=== PATIENT | male | born 1955 | race Hispanic/Latino ===

== ENCOUNTER 2023-03-16 16:46 | Inpatient (IN) | payer MEDICARE, OTHER, SELFPAY ==
[~2023-03-16 16:46] MED LIST: Iopamidol-370 76% 500 ML MDV (1 ML CHARGE) ONE
[2023-03-16 17:44] LABS: #Eosinphils 0.1 thou/uL (0.0-0.7); #Monocytes 0.7 thou/uL (0.11-0.59); #Neutrophils 6.1 thou/uL (1.40-6.50); %Basophils 0.5 % (0.0-1.0); %Eosinophils 1.3 % (0.0-10.0); %Lymphocytes 20.6 % (21.0-51.0); %Monocytes 8.1 % (0.0-10.0); %Neutrophils 69.2 % (42.0-75.0); Hemoglobin 14.3 g/dL (14.0-18.0); Mean Corpuscular HGB CONC 34.2 g/dL (32.0-36.0); Mean Corpuscular Hemoglobin 28.7 pg (27.0-31.0); Mean Corpuscular Volume 83.9 fl (78.0-98.0); Mean Platelet Volume 10.9 fL (7.4-10.4); Platelet Count 227 10x3/uL (130-400); RBC Distribution Width 13.9 % (11.5-14.5); Red Blood Cell (RBC) Count 4.98 mill/uL (4.70-6.10); White Blood Cell (WBC) Count 8.8 10x3/uL (4.8-10.8)
[2023-03-16 18:12] LABS: ALT (SGPT) 14 U/L (8-55); AST (SGOT) 15 U/L (5-34); Albumin 4.3 g/dL (3.4-4.8); Alkaline Phosphatase 73 U/L (40-110); Anion Gap 14 mmol/L (10-20); BUN (Urea Nitrogen) 12 mg/dL (8.4-25.7); Bilirubin, Total 0.4 mg/dL (0.2-1.2); CK (CPK) 164 U/L (30-200); Calc. Creatinine Clearance 0 mL/min (70-130); Calcium 9.1 mg/dL (7.8-10.44); Carbon Dioxide 25 mmol/L (23-31); Chloride 103 mmol/L (98-107); Estimated GFR 79; Glucose 106 mg/dL (80-115); Lipase 76 U/L (8-78); Potassium 3.7 mmol/L (3.5-5.1); Protein, Total 7.3 g/dL (5.8-8.1); Sodium 138 mmol/L (136-145)
[2023-03-16] MEDS ORDERED: hydrALAZINE 20 MG/ML VIAL ONE (18:48)
[2023-03-16] MEDS ORDERED: Acetaminophen 325 MG TAB PO PRN (19:45)
[2023-03-16] MEDS ORDERED: hydrALAZINE 20 MG/ML VIAL SLOW IVP PRN (19:45)
[2023-03-16] MEDS ORDERED: Acetaminophen 650 MG Suppository PR PRN (19:45)
[2023-03-16] MEDS ORDERED: Ondansetron PF 4 MG/2 ML Vial IVP PRN (19:45)
[2023-03-16] MEDS ORDERED: Ondansetron ODT 4 MG TAB PO PRN (19:45)
[2023-03-16] MEDS ORDERED: Aspirin 81 mg Enteric Coated Tablet PO SCH (20:00)
[2023-03-16] MEDS ORDERED: Aspirin Chewable 81 MG TAB PO SCH (20:00)
[2023-03-16] MEDS ORDERED: Aspirin Chewable 81 MG TAB ONE (20:28)
[2023-03-16] MEDS: Atorvastatin Calcium 40 MG TAB PO SCH (20:31)
[2023-03-17 04:19] LABS: #Eosinphils 0.2 thou/uL (0.0-0.7); #Monocytes 0.8 thou/uL (0.11-0.59); %Basophils 0.4 % (0.0-1.0); %Eosinophils 1.6 % (0.0-10.0); %Lymphocytes 23.5 % (21.0-51.0); %Monocytes 8.8 % (0.0-10.0); %Neutrophils 65.5 % (42.0-75.0); Mean Corpuscular HGB CONC 34.5 g/dL (32.0-36.0); Mean Corpuscular Hemoglobin 29.4 pg (27.0-31.0); Mean Corpuscular Volume 85.1 fl (78.0-98.0); Platelet Count 231 10x3/uL (130-400); Red Blood Cell (RBC) Count 4.77 mill/uL (4.70-6.10); White Blood Cell (WBC) Count 9.1 10x3/uL (4.8-10.8)
[2023-03-17 04:29] LABS: Hemoglobin A1c 6.1 % (4.0-6.0)
[2023-03-17 04:45] LABS: Anion Gap 14 mmol/L (10-20); BUN (Urea Nitrogen) 10 mg/dL (8.4-25.7); Calc. Creatinine Clearance 0 mL/min (70-130); Calcium 8.9 mg/dL (7.8-10.44); Carbon Dioxide 24 mmol/L (23-31); Cardiac Risk 2.6 (Less than 4.5); Chloride 103 mmol/L (98-107); Cholesterol 108 mg/dl (< 200 Desired); Estimated GFR 89; Glucose 106 mg/dL (80-115); HDL Cholesterol 41 mg/dL (>60 Neg Risk); LDL Cholesterol, Calculated 55 mg/dL; Potassium 3.6 mmol/L (3.5-5.1); Sodium 137 mmol/L (136-145); Triglycerides 62 mg/dL (Less than 150)
[2023-03-17] MEDS ORDERED: Aspirin Chewable 81 MG TAB ONE (08:47)
[2023-03-17] MEDS: Aspirin 81 mg Enteric Coated Tablet PO SCH (08:52)
[2023-03-17] MEDS ORDERED: niCARdipine 25 MG/10 ML SDV ONE (10:39)
[2023-03-17] MEDS ORDERED: niCARdipine 25 MG in Sodium Chloride 0.9% 250 ML 250 ML IVPB SCH (10:45)
[2023-03-17] MEDS ORDERED: Famotidine 20 MG TAB PO SCH ×2 (21:00→21:45)
[2023-03-17] MEDS: Atorvastatin Calcium 40 MG TAB PO SCH (21:42)
[2023-03-17] MEDS ORDERED: Atorvastatin Calcium 40 MG TAB PO SCH (21:45)
[2023-03-18 05:56] VITALS: BMI 29.8
[2023-03-18] MEDS: Famotidine 20 MG TAB PO SCH ×2 (08:12→20:14)
[2023-03-18] MEDS: Aspirin 81 mg Enteric Coated Tablet PO SCH (08:12)
[2023-03-18] MEDS: Losartan 25 MG TAB PO SCH (09:32)
[2023-03-18] MEDS: Metoprolol Tartrate 50 MG TAB PO SCH ×2 (09:33→20:13)
[2023-03-18] MEDS: Atorvastatin Calcium 40 MG TAB PO SCH (20:13)
[2023-03-19] MEDS: Losartan 25 MG TAB PO SCH (07:59)
[2023-03-19] MEDS: Famotidine 20 MG TAB PO SCH (08:00)
[2023-03-19] MEDS: Aspirin 81 mg Enteric Coated Tablet PO SCH (08:00)
[2023-03-19] MEDS: Metoprolol Tartrate 50 MG TAB PO SCH ×2 (08:00→20:28)
[2023-03-19] MEDS ORDERED: Losartan 25 MG TAB PO SCH (13:15)
[2023-03-19 14:03] VITALS: BP 200/86
[2023-03-19] MEDS: Atorvastatin Calcium 40 MG TAB PO SCH (20:28)
[2023-03-20] MEDS ORDERED: Losartan 25 MG TAB PO SCH (09:00)
[2023-03-20] MEDS ORDERED: Sterile Water 10 ML ONE (09:21)
[2023-03-20] MEDS: Metoprolol Tartrate 50 MG TAB PO SCH (13:24)
[2023-03-20] MEDS: Aspirin 81 mg Enteric Coated Tablet PO SCH (13:24)
[2023-03-20] MEDS ORDERED: Clopidogrel Bisulfate 75 MG TAB PO SCH (13:30)
[2023-03-20 13:39] VITALS: TEMP 98.4
== END 2023-03-20 16:30 | disposition home or self-care (01) | DRG 65 ==
LOC: ERS 16:46 → ERHOLD 19:09 → 2SE 03-17 16:21 → CCU 03-17 20:34
PROVIDERS: ADMIT Internal Medicine; ATTEND Family Medicine
PROC: B24BZZ4 Ultrasonography of Heart with Aorta, Transesophageal (ICD-10-PCS; principal; 2023-03-20)
DX: I63.89 Other cerebral infarction (principal); I16.1 Hypertensive emergency; E78.5 Hyperlipidemia, unspecified; I65.21 Occlusion and stenosis of right carotid artery; G83.21 Monoplegia of upper limb affecting right dominant side; R47.1 Dysarthria and anarthria; I10 Essential (primary) hypertension; Z87.891 Personal history of nicotine dependence; R00.1 Bradycardia, unspecified; F12.10 Cannabis abuse, uncomplicated
CPT/HCPCS: 36415; 70450; 70496; 70498; 70551; 71045; 80048; 80053; 80061; 82550; 83036; 83690; 84443; 84478; 84484; 85025; 93005; 93306; 93312; 96374; J0360; J1650; J7050; Q9967

== ENCOUNTER 2023-03-27 18:38 | Observation (INO) | payer MEDICARE ==
[2023-03-27 18:58] LABS: #Basophils 0.1 thou/uL (0.0-0.2); #Eosinphils 0.3 thou/uL (0.0-0.7); #Monocytes 1.1 thou/uL (0.11-0.59); #Neutrophils 5.7 thou/uL (1.40-6.50); %Basophils 0.6 % (0.0-1.0); %Eosinophils 2.2 % (0.0-10.0); %Lymphocytes 37.1 % (21.0-51.0); %Monocytes 9.9 % (0.0-10.0); %Neutrophils 49.9 % (42.0-75.0); Hemoglobin 15.1 g/dL (14.0-18.0); Mean Corpuscular HGB CONC 32.5 g/dL (32.0-36.0); Mean Corpuscular Volume 89.3 fl (78.0-98.0); Mean Platelet Volume 11.1 fL (7.4-10.4); Platelet Count 287 10x3/uL (130-400); RBC Distribution Width 13.7 % (11.5-14.5); Red Blood Cell (RBC) Count 5.21 mill/uL (4.70-6.10); White Blood Cell (WBC) Count 11.5 10x3/uL (4.8-10.8)
[2023-03-27 19:08] LABS: PTT 24.9 sec (22.9-36.1); Prothrombin Time 13.7 sec (12.0-14.7)
[2023-03-27 19:21] LABS: Calcium 9.3 mg/dL (7.8-10.44)
[2023-03-27 19:26] LABS: ALT (SGPT) 24 U/L (8-55); AST (SGOT) 18 U/L (5-34); Albumin 4.4 g/dL (3.4-4.8); Alkaline Phosphatase 83 U/L (40-110); Anion Gap 29 mmol/L (10-20); BUN (Urea Nitrogen) 30 mg/dL (8.4-25.7); Bilirubin, Total 0.2 mg/dL (0.2-1.2); CK (CPK) 75 U/L (30-200); Calc. Creatinine Clearance 0 mL/min (70-130); Carbon Dioxide 12 mmol/L (23-31); Chloride 103 mmol/L (98-107); Estimated GFR 39; Globulin 3.5 g/dL (2.4-3.5); Glucose 138 mg/dL (80-115); Potassium 4.2 mmol/L (3.5-5.1); Protein, Total 7.9 g/dL (5.8-8.1); Sodium 140 mmol/L (136-145)
[2023-03-27 19:36] LABS: Acetaminophen Less than 10 mcg/mL (10.0-30.0); Alcohol Less than 10.0 mg/dL (Less than 10); Magnesium 2.5 mg/dL (1.6-2.6); Salicylate Less than 8.0 mg/dL (15.0-30.0)
[2023-03-27] MEDS ORDERED: levETIRAcetam 500 MG/5 ML VIAL ONE ×2 (20:11→20:12)
[2023-03-27 20:57] LABS: Bilirubin Negative (Negative); Blood, Urine 1+ (Negative); CAUTI Indications for Culture Alt mental st,lethar; Clarity Turbid (Clear); Glucose, Urine (Dipstick) Normal (Negative); Ketone, Urine Negative (Negative); Leukocyte Negative Leu/uL (Negative); Mucous/LPF Rare LPF (<2+); Nitrite Negative (Negative); Protein, Urine (Dipstick) 50 mg/dL (Neg-Trace); RBC/HPF 0-3 HPF (0-3); Specific Gravity, Urine 1.025 (1.002-1.036); Squamous Epithelial 0-3 HPF (0-3); Urobilinogen Normal mg/dL (Less than 2); WBC/HPF 0-3 HPF (0-3)
[2023-03-27 21:00] LABS: Amphetamine Not Detected (NotDetected); Barbiturates Screen Not Detected (NotDetected); Benzodiazepine Screen Not Detected (NotDetected); Cocaine Metabolite Screen Not Detected (NotDetected); Methadone Not Detected (NotDetected); Methamphetamine Not Detected (NotDetected); Opiate Screen Not Detected (NotDetected); Oxycodone Screen Not Detected (NotDetected); Phencyclidine (PCP) Not Detected (NotDetected); THC/Cannabinoid Screen Detected (NotDetected); Tricyclic Screen Not Detected (NotDetected)
[2023-03-27] MEDS ORDERED: Acetaminophen 325 MG TAB PO PRN (21:05)
[2023-03-27] MEDS ORDERED: Ondansetron PF 4 MG/2 ML Vial IVP PRN (21:05)
[2023-03-27 21:10] LABS: Bacteria/HPF Rare-Few HPF (None Seen); Sperm/HPF Rare HPF (None Seen)
[2023-03-27 21:12] LABS: Urine Culture Reflex No No
[2023-03-27] MEDS ORDERED: Atorvastatin Calcium 40 MG TAB PO SCH (21:15)
[2023-03-27 21:43] LABS: Anion Gap 12 mmol/L (10-20); BUN (Urea Nitrogen) 27 mg/dL (8.4-25.7); Calc. Creatinine Clearance 0 mL/min (70-130); Calcium 8.5 mg/dL (7.8-10.44); Carbon Dioxide 25 mmol/L (23-31); Chloride 104 mmol/L (98-107); Estimated GFR 51; Glucose 119 mg/dL (80-115); Sodium 137 mmol/L (136-145)
[2023-03-27] MEDS ORDERED: Lorazepam 2 MG/ML VIAL SLOW IVP PRN (21:43)
[2023-03-27] MEDS ORDERED: Sodium Bicarb 50 MEQ/50 ML VIAL ONE (22:36)
[2023-03-28] MEDS: Sodium Chloride 0.9% 1,000 ML IV SCH ×2 (03:28→14:59)
[2023-03-28 05:21] LABS: #Basophils 0.1 thou/uL (0.0-0.2); #Eosinphils 0.1 thou/uL (0.0-0.7); #Neutrophils 5.9 thou/uL (1.40-6.50); %Basophils 0.6 % (0.0-1.0); %Eosinophils 1.4 % (0.0-10.0); %Lymphocytes 20.7 % (21.0-51.0); %Monocytes 11.5 % (0.0-10.0); %Neutrophils 65.5 % (42.0-75.0); Mean Corpuscular HGB CONC 33.6 g/dL (32.0-36.0); Mean Corpuscular Hemoglobin 28.5 pg (27.0-31.0); Mean Platelet Volume 11.4 fL (7.4-10.4); Platelet Count 240 10x3/uL (130-400); RBC Distribution Width 13.9 % (11.5-14.5); Red Blood Cell (RBC) Count 4.24 mill/uL (4.70-6.10)
[2023-03-28 05:27] LABS: Hemoglobin 12.1 g/dL (14.0-18.0)
[2023-03-28 05:28] LABS: Mean Corpuscular Volume 84.9 fl (78.0-98.0)
[2023-03-28 05:49] LABS: Anion Gap 13 mmol/L (10-20); BUN (Urea Nitrogen) 23 mg/dL (8.4-25.7); Calc. Creatinine Clearance 0 mL/min (70-130); Calcium 8.4 mg/dL (7.8-10.44); Carbon Dioxide 23 mmol/L (23-31); Chloride 107 mmol/L (98-107); Estimated GFR 62; Glucose 109 mg/dL (80-115); Potassium 3.8 mmol/L (3.5-5.1); Sodium 139 mmol/L (136-145)
[2023-03-28 05:53] VITALS: BMI 26.8
[2023-03-28] MEDS ORDERED: Aspirin 81 mg Enteric Coated Tablet PO SCH (09:00)
[2023-03-28] MEDS ORDERED: Clopidogrel Bisulfate 75 MG TAB PO SCH (09:00)
[2023-03-28] MEDS ORDERED: Metoprolol Tartrate 50 MG TAB PO SCH (09:00)
[2023-03-28] MEDS ORDERED: levETIRAcetam 500 MG TAB PO SCH (09:00)
[2023-03-28 12:36] VITALS: BP 119/65; TEMP 97.5
[2023-03-28] MEDS ORDERED: Atorvastatin Calcium 40 MG TAB PO SCH (21:00)
== END 2023-03-28 15:40 | disposition home or self-care (01) ==
LOC: ERS 18:38 → 2SE 21:01
PROVIDERS: ADMIT Internal Medicine; ATTEND Internal Medicine
DX: R56.9 Unspecified convulsions (principal); N17.9 Acute kidney failure, unspecified; I10 Essential (primary) hypertension; E78.5 Hyperlipidemia, unspecified; I25.10 Atherosclerotic heart disease of native coronary artery without angina pectoris; E87.20 Acidosis, unspecified; F12.10 Cannabis abuse, uncomplicated; Z86.73 Personal history of transient ischemic attack (TIA), and cerebral infarction without residual deficits; Z79.82 Long term (current) use of aspirin; Z79.02 Long term (current) use of antithrombotics/antiplatelets; Z79.899 Other long term (current) drug therapy; Z87.891 Personal history of nicotine dependence
CPT/HCPCS: 70450; 80048 ×2; 80053; 80306; 80307; 81001; 82550; 82962; 83605; 83735; 84146; 84484; 85025 ×2; 85610; 85730; 93005; 95712; 95819; 95957; 96365; 96375; 99285; G0378 ×2; J1953; 36415; 36416; J7050

== ENCOUNTER 2023-05-23 09:16 | Inpatient (IN) | payer MEDICARE ==
[2023-05-23 09:54] LABS: #Basophils 0.1 thou/uL (0.0-0.2); #Eosinphils 0.2 thou/uL (0.0-0.7); #Monocytes 0.6 thou/uL (0.11-0.59); #Neutrophils 7.3 thou/uL (1.40-6.50); %Basophils 0.6 % (0.0-1.0); %Eosinophils 1.8 % (0.0-10.0); %Monocytes 6.7 % (0.0-10.0); %Neutrophils 77.6 % (42.0-75.0); Hemoglobin 11.7 g/dL (14.0-18.0); Mean Corpuscular HGB CONC 33.4 g/dL (32.0-36.0); Mean Corpuscular Volume 86.6 fl (78.0-98.0); Mean Platelet Volume 10.3 fL (7.4-10.4); Platelet Count 279 10x3/uL (130-400); RBC Distribution Width 13.6 % (11.5-14.5); Red Blood Cell (RBC) Count 4.04 mill/uL (4.70-6.10); White Blood Cell (WBC) Count 9.4 10x3/uL (4.8-10.8)
[2023-05-23 10:04] LABS: INR-International Normal Ratio 1.1; PTT 28.7 sec (22.9-36.1); Prothrombin Time 14.5 sec (12.0-14.7)
[2023-05-23] MEDS ORDERED: Tenecteplase 50 MG ONE (10:10)
[2023-05-23 10:17] LABS: ALT (SGPT) 36 U/L (8-55); AST (SGOT) 16 U/L (5-34); Albumin 3.4 g/dL (3.4-4.8); Alkaline Phosphatase 77 U/L (40-110); Anion Gap 11 mmol/L (10-20); BUN (Urea Nitrogen) 14 mg/dL (8.4-25.7); Bilirubin, Total 0.3 mg/dL (0.2-1.2); Calc. Creatinine Clearance 0 mL/min (70-130); Calcium 8.9 mg/dL (7.8-10.44); Carbon Dioxide 26 mmol/L (23-31); Chloride 101 mmol/L (98-107); Estimated GFR 74; Globulin 2.9 g/dL (2.4-3.5); Glucose 121 mg/dL (80-115); Protein, Total 6.3 g/dL (5.8-8.1); Sodium 134 mmol/L (136-145)
[2023-05-23 10:19] LABS: Troponin I Less than 0.010 ng/mL (< 0.028)
[2023-05-23] MEDS ORDERED: Labetalol HCl 100 MG/20 ML VIAL ONE ×2 (10:26)
[2023-05-23] MEDS ORDERED: levETIRAcetam 500 MG/5 ML VIAL ONE (10:38)
[2023-05-23] MEDS ORDERED: Iopamidol-370 76% 500 ML MDV (1 ML CHARGE) ONE (10:54)
[2023-05-23] MEDS ORDERED: hydrALAZINE 20 MG/ML VIAL SLOW IVP PRN ×2 (11:10)
[2023-05-23] MEDS ORDERED: niCARdipine 25 MG in Sodium Chloride 0.9% 250 ML 250 ML IVPB PRN (11:10)
[2023-05-23] MEDS ORDERED: Communication Order-Pharmacy FS SCH (11:10)
[2023-05-23 12:38] VITALS: BMI 27.9
[2023-05-23] MEDS: Labetalol HCl 100 MG/20 ML VIAL SLOW IVP PRN ×2 (14:12→17:02)
[2023-05-23] MEDS ORDERED: Sodium Chloride 0.9% 1,000 ML IV SCH (16:15)
[2023-05-23] MEDS: levETIRAcetam 500 MG TAB PO SCH (20:38)
[2023-05-23] MEDS: Atorvastatin Calcium 40 MG TAB PO SCH (20:38)
[2023-05-24] MEDS: levETIRAcetam 500 MG TAB PO SCH ×2 (08:34→20:07)
[2023-05-24 12:05] LABS: Cardiac Risk 2.5 (Less than 4.5)
[2023-05-24 12:16] LABS: Troponin I Less than 0.010 ng/mL (< 0.028)
[2023-05-24 13:45] LABS: Syphilis Antibody Nonreactive (Nonreactive); Syphilis Antibody Index 0.09 S/CO (<1.00 Non-Reactive)
[2023-05-24 14:57] LABS: Troponin I Less than 0.010 ng/mL (< 0.028)
[2023-05-24] MEDS ORDERED: Acetaminophen 325 MG TAB PO PRN (20:01)
[2023-05-24] MEDS: Atorvastatin Calcium 40 MG TAB PO SCH (20:07)
[2023-05-25] MEDS: levETIRAcetam 500 MG TAB PO SCH (08:36)
[2023-05-25] MEDS ORDERED: Lorazepam 2 MG/ML VIAL SLOW IVP SCH (09:00)
[2023-05-25] MEDS ORDERED: levETIRAcetam 500 MG/5 ML VIAL SLOW IVP SCH (09:00)
[2023-05-25] MEDS ORDERED: Aspirin 81 mg Enteric Coated Tablet PO SCH (14:00)
[2023-05-25] MEDS: Atorvastatin Calcium 40 MG TAB PO SCH (20:51)
[2023-05-25] MEDS: levETIRAcetam 500 MG/5 ML VIAL SLOW IVP SCH (21:00)
[2023-05-26] MEDS: levETIRAcetam 500 MG/5 ML VIAL SLOW IVP SCH ×2 (08:03→21:55)
[2023-05-26] MEDS ORDERED: Aspirin 81 mg Enteric Coated Tablet PO SCH (09:00)
[2023-05-26 10:30] LABS: #Basophils 0.1 thou/uL (0.0-0.2); #Eosinphils 0.5 thou/uL (0.0-0.7); #Monocytes 0.8 thou/uL (0.11-0.59); #Neutrophils 5.8 thou/uL (1.40-6.50); %Basophils 0.6 % (0.0-1.0); %Eosinophils 5.7 % (0.0-10.0); %Lymphocytes 17.1 % (21.0-51.0); %Monocytes 9.3 % (0.0-10.0); %Neutrophils 67.1 % (42.0-75.0); Hematocrit 36.3 % (42.0-52.0); Hemoglobin 12.4 g/dL (14.0-18.0); Mean Corpuscular HGB CONC 34.2 g/dL (32.0-36.0); Mean Corpuscular Hemoglobin 28.6 pg (27.0-31.0); Mean Corpuscular Volume 83.6 fl (78.0-98.0); Mean Platelet Volume 10.6 fL (7.4-10.4); Platelet Count 253 10x3/uL (130-400); RBC Distribution Width 13.7 % (11.5-14.5); Red Blood Cell (RBC) Count 4.34 mill/uL (4.70-6.10); White Blood Cell (WBC) Count 8.6 10x3/uL (4.8-10.8)
[2023-05-26 10:52] LABS: Phosphorus 3.5 mg/dL (2.3-4.7)
[2023-05-26 10:56] LABS: ALT (SGPT) 21 U/L (8-55); AST (SGOT) 12 U/L (5-34); Albumin 3.6 g/dL (3.4-4.8); Alkaline Phosphatase 81 U/L (40-110); Anion Gap 11 mmol/L (10-20); BUN (Urea Nitrogen) 16 mg/dL (8.4-25.7); Bilirubin, Total 0.4 mg/dL (0.2-1.2); Calc. Creatinine Clearance 80 mL/min (70-130); Carbon Dioxide 29 mmol/L (23-31); Chloride 100 mmol/L (98-107); Estimated GFR 82; Globulin 3.1 g/dL (2.4-3.5); Glucose 119 mg/dL (80-115); Potassium 3.8 mmol/L (3.5-5.1); Protein, Total 6.7 g/dL (5.8-8.1); Sodium 136 mmol/L (136-145)
[2023-05-26 11:00] LABS: Anion Gap 10 mmol/L (10-20); BUN (Urea Nitrogen) 16 mg/dL (8.4-25.7); Calc. Creatinine Clearance 82 mL/min (70-130); Carbon Dioxide 29 mmol/L (23-31); Chloride 101 mmol/L (98-107); Estimated GFR 86; Glucose 119 mg/dL (80-115); Potassium 3.8 mmol/L (3.5-5.1); Sodium 136 mmol/L (136-145)
[2023-05-26] MEDS ORDERED: Lacosamide 200 MG in Sodium Chloride 0.9% 50 ML IVPB SCH ×2 (11:15→21:00)
[2023-05-26 13:00] LABS: ANA Symphony (Qualitative) Equivocal: See Note (Negative); ANA Symphony (Quantitative) 0.8 Ratio (< 0.7 Negative); CCP IgG Antibody 1.4 EliAU/mL (<7 Negative); Rheumatoid Factor IgA Antibody 3.3 IU/mL (<14 Negative)
[2023-05-26 15:12] VITALS: BP 137/86
[2023-05-26] MEDS: Atorvastatin Calcium 40 MG TAB PO SCH (21:55)
[2023-05-27 01:49] VITALS: TEMP 98.4
[2023-05-27 05:02] LABS: Magnesium 1.8 mg/dL (1.6-2.6)
== END 2023-05-27 09:20 | disposition critical access hospital (66) | DRG 62 ==
LOC: ERS 09:16 → CCU 09:40
PROVIDERS: ADMIT Hospitalist; ATTEND Internal Medicine
PROC: 3E03317 Introduction of Other Thrombolytic into Peripheral Vein, Percutaneous Approach (ICD-10-PCS; principal; 2023-05-23)
PROC: 4A10X4Z Monitoring of Central Nervous Electrical Activity, External Approach (ICD-10-PCS; 2023-05-25)
PROC: 4A10X4Z Monitoring of Central Nervous Electrical Activity, External Approach (ICD-10-PCS; 2023-05-26)
DX: I63.9 Cerebral infarction, unspecified (principal); E87.1 Hypo-osmolality and hyponatremia; G81.91 Hemiplegia, unspecified affecting right dominant side; I16.1 Hypertensive emergency; R47.01 Aphasia; E78.2 Mixed hyperlipidemia; F12.10 Cannabis abuse, uncomplicated; G40.909 Epilepsy, unspecified, not intractable, without status epilepticus; I10 Essential (primary) hypertension; Z86.73 Personal history of transient ischemic attack (TIA), and cerebral infarction without residual deficits; Z87.891 Personal history of nicotine dependence; Z79.82 Long term (current) use of aspirin; Z79.899 Other long term (current) drug therapy
CPT/HCPCS: 36415; 36416; 70450; 70496; 70498; 70551; 71045; 80048; 80053; 80061; 83520; 83735; 84100; 84484; 85025; 85610; 85652; 85730; 86038; 86200; 86225; 86780; 93005; 93306; 94760; 95711; 95819; 95957; 96365; 96375; 99292; C9254; J0360; J1650; J1953; J2060; J3101; J7050; Q9967

== ENCOUNTER 2023-07-17 14:50 | Emergency (ER) | payer MEDICARE ==
[2023-07-17] MEDS ORDERED: levETIRAcetam 500 MG/5 ML VIAL ONE ×2 (15:20→17:49)
[2023-07-17 15:30] LABS: #Monocytes 0.7 thou/uL (0.11-0.59); #Neutrophils 15.4 thou/uL (1.40-6.50); %Basophils 0.2 % (0.0-1.0); %Eosinophils 0.1 % (0.0-10.0); %Lymphocytes 2.6 % (21.0-51.0); %Monocytes 4.3 % (0.0-10.0); %Neutrophils 92.3 % (42.0-75.0); Hematocrit 39.9 % (42.0-52.0); Hemoglobin 13.2 g/dL (14.0-18.0); Mean Corpuscular HGB CONC 33.1 g/dL (32.0-36.0); Mean Corpuscular Hemoglobin 28.9 pg (27.0-31.0); Mean Corpuscular Volume 87.5 fl (78.0-98.0); Mean Platelet Volume 11.1 fL (7.4-10.4); Platelet Count 215 10x3/uL (130-400); RBC Distribution Width 13.8 % (11.5-14.5); Red Blood Cell (RBC) Count 4.56 mill/uL (4.70-6.10); White Blood Cell (WBC) Count 16.7 10x3/uL (4.8-10.8)
[2023-07-17 15:42] LABS: Prothrombin Time 14.6 sec (12.0-14.7)
[2023-07-17 15:43] LABS: PTT 21.7 sec (22.9-36.1)
[2023-07-17 15:44] LABS: INR-International Normal Ratio 1.1
[2023-07-17 15:54] LABS: ALT (SGPT) 28 U/L (8-55); AST (SGOT) 17 U/L (5-34); Acetaminophen Less than 10 mcg/mL (10.0-30.0); Albumin 4.3 g/dL (3.4-4.8); Alcohol Less than 10.0 mg/dL (Less than 10); Alkaline Phosphatase 87 U/L (40-110); Anion Gap 17 mmol/L (10-20); BUN (Urea Nitrogen) 19 mg/dL (8.4-25.7); Bilirubin, Total 0.2 mg/dL (0.2-1.2); CK (CPK) 172 U/L (30-200); Calc. Creatinine Clearance 0 mL/min (70-130); Carbon Dioxide 21 mmol/L (23-31); Chloride 104 mmol/L (98-107); Estimated GFR 93; Globulin 2.7 g/dL (2.4-3.5); Glucose 119 mg/dL (80-115); Lipase 41 U/L (8-78); Potassium 3.9 mmol/L (3.5-5.1); Salicylate Less than 8.0 mg/dL (15.0-30.0); Sodium 138 mmol/L (136-145)
[2023-07-17 15:56] LABS: Troponin I Less than 0.010 ng/mL (< 0.028)
[2023-07-17] MEDS ORDERED: LORazepam 2 MG/ML SYR.(CARPUJECT) ONE ×2 (16:01→17:26)
[2023-07-17 17:24] LABS: Bacteria/HPF None Seen HPF (None Seen); Bilirubin Negative (Negative); Blood, Urine 1+ (Negative); CAUTI Indications for Culture Alt mental st,lethar; Clarity Clear (Clear); Glucose, Urine (Dipstick) 70 mg/dL (Negative); Ketone, Urine Negative (Negative); Leukocyte Negative Leu/uL (Negative); Nitrite Negative (Negative); Protein, Urine (Dipstick) Negative (Neg-Trace); RBC/HPF 0-3 HPF (0-3); Specific Gravity, Urine 1.025 (1.002-1.036); Squamous Epithelial 0-3 HPF (0-3); Urobilinogen Normal mg/dL (Less than 2); WBC/HPF 0-3 HPF (0-3)
[2023-07-17 17:32] LABS: Urine Culture Reflex No No
[2023-07-17 17:33] LABS: Amphetamine Not Detected (NotDetected); Barbiturates Screen Not Detected (NotDetected); Benzodiazepine Screen Not Detected (NotDetected); Cocaine Metabolite Screen Not Detected (NotDetected); Methadone Not Detected (NotDetected); Methamphetamine Not Detected (NotDetected); Opiate Screen Not Detected (NotDetected); Oxycodone Screen Not Detected (NotDetected); Phencyclidine (PCP) Not Detected (NotDetected); THC/Cannabinoid Screen Not Detected (NotDetected); Tricyclic Screen Not Detected (NotDetected)
[2023-07-17 17:57] LABS: SARS-CoV-2 NAA Rapid Test Not Detected (NotDetected)
[2023-07-17] MEDS ORDERED: Fosphenytoin Sodium 500 mg/10 ml Vial ONE (19:49)
[2023-07-17 19:54] LABS: Lactic Acid 0.9 mmol/L (0.5-2.2)
== END 2023-07-17 22:36 | disposition short-term general hospital (02) ==
LOC: ERS 14:50
DX: G40.919 Epilepsy, unspecified, intractable, without status epilepticus (principal); E78.5 Hyperlipidemia, unspecified; I10 Essential (primary) hypertension; Z79.899 Other long term (current) drug therapy; Z79.82 Long term (current) use of aspirin; Z20.822 Contact with and (suspected) exposure to COVID-19
CPT/HCPCS: 0240U; 70450; 71045; 80306; 80307; 81001; 82140; 82550; 83605; 83690; 84146; 84484; 85610; 85730; 87040; 93005; J1953; J2060; 36415; 51701; 80053; 84443; 85025; 96365; 96366; 96375; 96376; Q2009

== ENCOUNTER 2023-08-07 07:11 | Outpatient (CLI) | payer MEDICARE | END 2023-08-07 07:12 | disposition home or self-care (01) | PROVIDERS: ATTEND Psychiatry & Neurology Neurology | DX: I63.9 Cerebral infarction, unspecified (principal) | CPT/HCPCS: 93225; 93226 ==

== ENCOUNTER 2023-08-08 12:38 | Outpatient (CLI) | payer MEDICARE | END 2023-08-08 12:39 | disposition home or self-care (01) | LOC: ULT 12:38 | PROVIDERS: ATTEND Psychiatry & Neurology Neurology | DX: I63.9 Cerebral infarction, unspecified (principal); G93.89 Other specified disorders of brain; I65.29 Occlusion and stenosis of unspecified carotid artery; I08.8 Other rheumatic multiple valve diseases | CPT/HCPCS: 70450; 93306; 93880 ==

== ENCOUNTER 2023-08-26 19:34 | Inpatient (IN) | payer MEDICARE ==
[2023-08-26 20:25] LABS: #Basophils 0.1 thou/uL (0.0-0.2); #Eosinphils 0.3 thou/uL (0.0-0.7); #Monocytes 0.8 thou/uL (0.11-0.59); #Neutrophils 8.8 thou/uL (1.40-6.50); %Basophils 0.5 % (0.0-1.0); %Eosinophils 2.5 % (0.0-10.0); %Monocytes 6.7 % (0.0-10.0); %Neutrophils 73.1 % (42.0-75.0); Mean Corpuscular HGB CONC 33.3 g/dL (32.0-36.0); Mean Corpuscular Hemoglobin 28.2 pg (27.0-31.0); Mean Corpuscular Volume 84.7 fl (78.0-98.0); Platelet Count 253 10x3/uL (130-400); RBC Distribution Width 13.8 % (11.5-14.5); Red Blood Cell (RBC) Count 4.25 mill/uL (4.70-6.10); White Blood Cell (WBC) Count 12.1 10x3/uL (4.8-10.8)
[2023-08-26 20:39] LABS: Prothrombin Time 13.7 sec (12.0-14.7)
[2023-08-26 20:40] LABS: PTT 30.2 sec (22.9-36.1)
[2023-08-26 20:48] LABS: ALT (SGPT) 11 U/L (8-55); AST (SGOT) 11 U/L (5-34); Albumin 3.7 g/dL (3.4-4.8); Alkaline Phosphatase 95 U/L (40-110); Anion Gap 13 mmol/L (10-20); BUN (Urea Nitrogen) 12 mg/dL (8.4-25.7); Bilirubin, Total 0.2 mg/dL (0.2-1.2); Calc. Creatinine Clearance 0 mL/min (70-130); Calcium 8.6 mg/dL (7.8-10.44); Carbon Dioxide 26 mmol/L (23-31); Chloride 102 mmol/L (98-107); Estimated GFR 81; Glucose 123 mg/dL (80-115); Potassium 3.9 mmol/L (3.5-5.1); Protein, Total 6.7 g/dL (5.8-8.1); Sodium 137 mmol/L (136-145)
[2023-08-26 20:51] LABS: Troponin I Less than 0.010 ng/mL (< 0.028)
[2023-08-26] MEDS ORDERED: LORazepam 2 MG/ML SYR.(CARPUJECT) ONE (23:39)
[2023-08-26] MEDS ORDERED: Ondansetron ODT 4 MG TAB SL PRN (23:45)
[2023-08-26] MEDS ORDERED: Ondansetron PF 4 MG/2 ML Vial IVP PRN (23:45)
[2023-08-26] MEDS ORDERED: Acetaminophen 325 MG TAB PO PRN (23:45)
[2023-08-26] MEDS ORDERED: levETIRAcetam 500 MG TAB ONE (23:59)
[2023-08-27] MEDS ORDERED: Ondansetron PF 4 MG/2 ML Vial IVP PRN (00:31)
[2023-08-27] MEDS ORDERED: Ondansetron ODT 4 MG TAB PO PRN (00:31)
[2023-08-27] MEDS ORDERED: Calcium Carbonate 500 MG ChewTAB PO PRN (00:31)
[2023-08-27] MEDS ORDERED: Acetaminophen 325 MG TAB PO PRN (00:31)
[2023-08-27 00:41] LABS: Troponin I Less than 0.010 ng/mL (< 0.028)
[2023-08-27 02:02] VITALS: BMI 26.5
[2023-08-27 03:40] LABS: Troponin I Less than 0.010 ng/mL (< 0.028)
[2023-08-27 03:42] LABS: Anion Gap 11 mmol/L (10-20); BUN (Urea Nitrogen) 10 mg/dL (8.4-25.7); Calc. Creatinine Clearance 90 mL/min (70-130); Calcium 8.5 mg/dL (7.8-10.44); Carbon Dioxide 26 mmol/L (23-31); Chloride 102 mmol/L (98-107); Estimated GFR 94; Glucose 113 mg/dL (80-115); Potassium 3.8 mmol/L (3.5-5.1); Sodium 135 mmol/L (136-145)
[2023-08-27] MEDS ORDERED: levETIRAcetam 500 MG TAB PO SCH (09:00)
[2023-08-27] MEDS: Famotidine 20 MG TAB PO SCH ×2 (09:37→21:06)
[2023-08-27] MEDS: Famotidine/PF 20 mg/2ml Vial SLOW IVP SCH ×2 (09:37→21:49)
[2023-08-27] MEDS: Sertraline 25 MG TAB PO SCH (09:37)
[2023-08-27] MEDS: Aspirin 81 mg Enteric Coated Tablet PO SCH (09:37)
[2023-08-27] MEDS: Clopidogrel Bisulfate 75 MG TAB PO SCH (09:37)
[2023-08-27] MEDS: Divalproex Sodium 250 MG (DR) TAB PO SCH ×2 (09:38→21:06)
[2023-08-27] MEDS: Losartan 25 MG TAB PO SCH (09:38)
[2023-08-27] MEDS: levETIRAcetam 500 MG TAB PO SCH ×2 (09:38→21:06)
[2023-08-27] MEDS ORDERED: Magnevist 469MG/ML 20 ML VIAL ONE (09:49)
[2023-08-27] MEDS ORDERED: Ampicillin 2 GM in Sodium Chloride 0.9% 100 ML IVPB SCH (16:00)
[2023-08-27] MEDS: Dexamethasone 10 MG/ML VIAL SLOW IVP SCH ×2 (16:32→22:08)
[2023-08-27] MEDS: cefTRIAXone\\ROCEPHIN 2 GM in Sodium Chloride 0.9% 100 ML IVPB SCH (16:32)
[2023-08-27] MEDS: Ampicillin 2 GM in Sodium Chloride 0.9% 100 ML IVPB SCH ×2 (17:25→21:20)
[2023-08-27] MEDS ORDERED: Vancomycin (BATCH) 1.5 GM in Premix 1 BAG IVPB SCH (18:00)
[2023-08-27] MEDS: Atorvastatin Calcium 40 MG TAB PO SCH (21:06)
[2023-08-27] MEDS: Acyclovir Sodium 660 MG in Sodium Chloride 0.9% 100 ML IVPB SCH (22:08)
[2023-08-28] MEDS: Ampicillin 2 GM in Sodium Chloride 0.9% 100 ML IVPB SCH ×4 (01:22→16:09)
[2023-08-28] MEDS: cefTRIAXone\\ROCEPHIN 2 GM in Sodium Chloride 0.9% 100 ML IVPB SCH ×2 (03:30→17:19)
[2023-08-28] MEDS: Dexamethasone 10 MG/ML VIAL SLOW IVP SCH ×4 (03:30→22:33)
[2023-08-28] MEDS: Acyclovir Sodium 660 MG in Sodium Chloride 0.9% 100 ML IVPB SCH ×3 (04:36→21:17)
[2023-08-28 06:37] LABS: #Monocytes 0.1 thou/uL (0.11-0.59); %Basophils 0.1 % (0.0-1.0); %Lymphocytes 9.2 % (21.0-51.0); %Monocytes 0.9 % (0.0-10.0); %Neutrophils 89.4 % (42.0-75.0); Hematocrit 36.8 % (42.0-52.0); Hemoglobin 12.5 g/dL (14.0-18.0); Mean Corpuscular Hemoglobin 28.3 pg (27.0-31.0); Mean Corpuscular Volume 83.4 fl (78.0-98.0); Mean Platelet Volume 11.1 fL (7.4-10.4); Platelet Count 264 10x3/uL (130-400); RBC Distribution Width 13.3 % (11.5-14.5); Red Blood Cell (RBC) Count 4.41 mill/uL (4.70-6.10); White Blood Cell (WBC) Count 7.8 10x3/uL (4.8-10.8)
[2023-08-28 06:54] LABS: Prothrombin Time 13.8 sec (12.0-14.7)
[2023-08-28 06:55] LABS: PTT 28.2 sec (22.9-36.1)
[2023-08-28 07:05] LABS: Anion Gap 14 mmol/L (10-20); BUN (Urea Nitrogen) 13 mg/dL (8.4-25.7); Calc. Creatinine Clearance 88 mL/min (70-130); Calcium 8.9 mg/dL (7.8-10.44); Carbon Dioxide 23 mmol/L (23-31); Cardiac Risk 2.2 (Less than 4.5); Chloride 103 mmol/L (98-107); Cholesterol 116 mg/dl (< 200 Desired); Estimated GFR 94; Glucose 163 mg/dL (80-115); HDL Cholesterol 53 mg/dL (>60 Neg Risk); LDL Cholesterol, Calculated 56 mg/dL; Potassium 4.2 mmol/L (3.5-5.1); Sodium 136 mmol/L (136-145); Triglycerides 34 mg/dL (Less than 150)
[2023-08-28] MEDS: levETIRAcetam 500 MG TAB PO SCH ×2 (09:22→21:17)
[2023-08-28] MEDS: Aspirin 81 mg Enteric Coated Tablet PO SCH (09:22)
[2023-08-28] MEDS: Famotidine/PF 20 mg/2ml Vial SLOW IVP SCH ×2 (09:22→21:44)
[2023-08-28] MEDS: Divalproex Sodium 250 MG (DR) TAB PO SCH ×2 (09:22→21:18)
[2023-08-28] MEDS: Sertraline 25 MG TAB PO SCH (09:22)
[2023-08-28] MEDS: Losartan 25 MG TAB PO SCH (09:22)
[2023-08-28] MEDS: Famotidine 20 MG TAB PO SCH ×2 (09:23→21:18)
[2023-08-28] MEDS: Clopidogrel Bisulfate 75 MG TAB PO SCH (09:24)
[2023-08-28 12:02] LABS: CSF Source CSF; Clarity Clear (Clear); Tube # 4
[2023-08-28 12:03] LABS: CSF, Glucose 83 mg/dl (40-70); CSF, Protein 81 mg/dL (15-40)
[2023-08-28 13:16] LABS: CSF RBC Count - Manual 23 /cu.mm (None Seen); CSF WBC/NonHematics Count-Man 50 /cu.mm (0-5)
[2023-08-28 15:17] LABS: Cell Count Non Hematic 21 %; Lymphocytes 68 %; Segmented Neutrophils 10 %
[2023-08-28] MEDS ORDERED: Vancomycin (BATCH) 1.5 GM in Premix 1 BAG IVPB SCH (18:00)
[2023-08-28 18:17] LABS: Bilirubin Negative (Negative); Blood, Urine 3+ (Negative); CAUTI Indications for Culture Dysuria,urgency,freq; Clarity Turbid (Clear); Glucose, Urine (Dipstick) Normal (Negative); Ketone, Urine Negative (Negative); Leukocyte Negative Leu/uL (Negative); Nitrite Negative (Negative); Protein, Urine (Dipstick) 20 mg/dL (Neg-Trace); RBC/HPF Greater than 50 HPF (0-3); Specific Gravity, Urine 1.014 (1.002-1.036); Squamous Epithelial None Seen HPF (0-3); Urobilinogen Normal mg/dL (Less than 2); WBC/HPF 0-3 HPF (0-3); pH, Urine 5.5 (5.0-9.0)
[2023-08-28 18:24] LABS: Bacteria/HPF 1+ HPF (None Seen)
[2023-08-28 18:26] LABS: Urine Culture Reflex No No
[2023-08-28] MEDS: Atorvastatin Calcium 40 MG TAB PO SCH (21:18)
[2023-08-29] MEDS: Acyclovir Sodium 660 MG in Sodium Chloride 0.9% 100 ML IVPB SCH ×3 (04:33→21:12)
[2023-08-29] MEDS: Dexamethasone 10 MG/ML VIAL SLOW IVP SCH ×4 (04:33→22:34)
[2023-08-29] MEDS: levETIRAcetam 500 MG TAB PO SCH ×2 (09:39→21:13)
[2023-08-29] MEDS: Clopidogrel Bisulfate 75 MG TAB PO SCH (09:40)
[2023-08-29] MEDS: Divalproex Sodium 250 MG (DR) TAB PO SCH ×2 (09:40→21:13)
[2023-08-29] MEDS: Famotidine 20 MG TAB PO SCH ×2 (09:40→21:13)
[2023-08-29] MEDS: Aspirin 81 mg Enteric Coated Tablet PO SCH (09:40)
[2023-08-29] MEDS: Sertraline 25 MG TAB PO SCH (09:40)
[2023-08-29] MEDS: Losartan 25 MG TAB PO SCH (09:40)
[2023-08-29] MEDS: Famotidine/PF 20 mg/2ml Vial SLOW IVP SCH ×2 (09:41→21:14)
[2023-08-29] MEDS: Atorvastatin Calcium 40 MG TAB PO SCH (21:13)
[2023-08-30] MEDS: Acyclovir Sodium 660 MG in Sodium Chloride 0.9% 100 ML IVPB SCH ×2 (04:12→12:25)
[2023-08-30] MEDS: Dexamethasone 10 MG/ML VIAL SLOW IVP SCH ×4 (04:13→21:27)
[2023-08-30] MEDS: Famotidine/PF 20 mg/2ml Vial SLOW IVP SCH ×2 (08:33→21:27)
[2023-08-30] MEDS: levETIRAcetam 500 MG TAB PO SCH ×2 (08:33→21:26)
[2023-08-30] MEDS: Losartan 25 MG TAB PO SCH (08:33)
[2023-08-30] MEDS: Divalproex Sodium 250 MG (DR) TAB PO SCH ×2 (08:33→21:26)
[2023-08-30] MEDS: Aspirin 81 mg Enteric Coated Tablet PO SCH (08:33)
[2023-08-30] MEDS: Clopidogrel Bisulfate 75 MG TAB PO SCH (08:34)
[2023-08-30] MEDS: Famotidine 20 MG TAB PO SCH ×2 (08:34→21:26)
[2023-08-30] MEDS: Sertraline 25 MG TAB PO SCH (08:34)
[2023-08-30] MEDS ORDERED: chlorproMAZINE HCl 50 MG/2 ML AMP SLOW IVP SCH (13:00)
[2023-08-30] MEDS: Atorvastatin Calcium 40 MG TAB PO SCH (21:25)
[2023-08-31] MEDS: Dexamethasone 10 MG/ML VIAL SLOW IVP SCH (05:13)
[2023-08-31] MEDS: Sertraline 25 MG TAB PO SCH (08:34)
[2023-08-31] MEDS: levETIRAcetam 500 MG TAB PO SCH ×2 (08:34→20:56)
[2023-08-31] MEDS: Clopidogrel Bisulfate 75 MG TAB PO SCH (08:34)
[2023-08-31] MEDS: Losartan 25 MG TAB PO SCH (08:34)
[2023-08-31] MEDS: Aspirin 81 mg Enteric Coated Tablet PO SCH (08:34)
[2023-08-31] MEDS: Divalproex Sodium 250 MG (DR) TAB PO SCH ×2 (08:35→20:56)
[2023-08-31] MEDS: Famotidine 20 MG TAB PO SCH ×2 (08:35→20:56)
[2023-08-31] MEDS: Famotidine/PF 20 mg/2ml Vial SLOW IVP SCH (09:10)
[2023-08-31] MEDS ORDERED: Baclofen 10 MG TAB PO SCH (18:30)
[2023-08-31] MEDS: Atorvastatin Calcium 40 MG TAB PO SCH (20:56)
[2023-09-01] MEDS ORDERED: Dexamethasone 4 MG TAB PO SCH (08:00)
[2023-09-01] MEDS: Divalproex Sodium 250 MG (DR) TAB PO SCH ×2 (08:36→19:20)
[2023-09-01] MEDS: Clopidogrel Bisulfate 75 MG TAB PO SCH (08:36)
[2023-09-01] MEDS: Losartan 25 MG TAB PO SCH (08:36)
[2023-09-01] MEDS: levETIRAcetam 500 MG TAB PO SCH ×2 (08:36→19:20)
[2023-09-01] MEDS: Famotidine 20 MG TAB PO SCH ×2 (08:37→19:19)
[2023-09-01] MEDS: Sertraline 25 MG TAB PO SCH (08:37)
[2023-09-01] MEDS: Aspirin 81 mg Enteric Coated Tablet PO SCH (08:37)
[2023-09-01] MEDS ORDERED: Amlodipine 5 MG TAB PO SCH (09:00)
[2023-09-01] MEDS ORDERED: Dexamethasone 10 MG/ML VIAL SLOW IVP SCH (09:00)
[2023-09-01] MEDS ORDERED: OXcarbazepine 300 MG TAB PO SCH (09:00)
[2023-09-01] MEDS ORDERED: Baclofen 10 MG TAB PO SCH (09:00)
[2023-09-01 16:25] VITALS: TEMP 97.7
[2023-09-01] MEDS: Atorvastatin Calcium 40 MG TAB PO SCH (19:19)
[2023-09-01 20:11] VITALS: BP 115/56
== END 2023-09-01 20:15 | DRG 98 ==
LOC: ERS 19:34 → 2SE 23:52
PROVIDERS: ADMIT Student in an Organized Health Care Education/Training Program; ATTEND Family Medicine
PROC: 009U3ZX Drainage of Spinal Canal, Percutaneous Approach, Diagnostic (ICD-10-PCS; principal; 2023-08-28)
PROC: B01B1ZZ Fluoroscopy of Spinal Cord using Low Osmolar Contrast (ICD-10-PCS; 2023-08-28)
DX: G03.0 Nonpyogenic meningitis (principal); I50.32 Chronic diastolic (congestive) heart failure; I69.351 Hemiplegia and hemiparesis following cerebral infarction affecting right dominant side; G40.909 Epilepsy, unspecified, not intractable, without status epilepticus; I11.0 Hypertensive heart disease with heart failure; R47.81 Slurred speech; E78.5 Hyperlipidemia, unspecified; F12.10 Cannabis abuse, uncomplicated; D72.829 Elevated white blood cell count, unspecified; R33.9 Retention of urine, unspecified; R06.6 Hiccough; Z79.82 Long term (current) use of aspirin; Z79.899 Other long term (current) drug therapy; Z87.891 Personal history of nicotine dependence; Z98.890 Other specified postprocedural states
CPT/HCPCS: 36415; 62270; 70450; 70496; 70498; 70551; 70552; 71045; 74022; 80048; 80053; 80061; 81001; 82565; 82945; 83880; 84157; 84484; 85025; 85060; 85610; 85730; 86592; 87040; 87070; 87205; 87529; 87798; 87899; 89051; 93005; 96374; A9579; J0133; J0290; J0696; J1100; J2060; J3230; J3370; J3490; J8540; Q9967; S0028

== ENCOUNTER 2023-10-06 14:30 | Emergency (ER) | payer MEDICARE ==
[2023-10-06 15:01] LABS: #Basophils 0.1 thou/uL (0.0-0.2); #Eosinphils 0.2 thou/uL (0.0-0.7); #Monocytes 0.9 thou/uL (0.11-0.59); #Neutrophils 5.5 thou/uL (1.40-6.50); %Basophils 0.6 % (0.0-1.0); %Eosinophils 2.5 % (0.0-10.0); %Lymphocytes 23.1 % (21.0-51.0); %Monocytes 10.5 % (0.0-10.0); %Neutrophils 62.6 % (42.0-75.0); Hematocrit 40.5 % (42.0-52.0); Hemoglobin 13.5 g/dL (14.0-18.0); Mean Corpuscular HGB CONC 33.3 g/dL (32.0-36.0); Mean Corpuscular Hemoglobin 28.7 pg (27.0-31.0); Mean Platelet Volume 10.5 fL (7.4-10.4); Platelet Count 236 10x3/uL (130-400); RBC Distribution Width 14.8 % (11.5-14.5); Red Blood Cell (RBC) Count 4.71 mill/uL (4.70-6.10); White Blood Cell (WBC) Count 8.8 10x3/uL (4.8-10.8)
[2023-10-06] MEDS ORDERED: LORazepam 2 MG/ML SYR.(CARPUJECT) ONE ×2 (15:01→15:25)
[2023-10-06 15:16] LABS: ALT (SGPT) 21 U/L (8-55); AST (SGOT) 16 U/L (5-34); Albumin 3.9 g/dL (3.4-4.8); Alkaline Phosphatase 83 U/L (40-110); Anion Gap 12 mmol/L (10-20); BUN (Urea Nitrogen) 19 mg/dL (8.4-25.7); Bilirubin, Total 0.2 mg/dL (0.2-1.2); Calc. Creatinine Clearance 0 mL/min (70-130); Calcium 8.7 mg/dL (7.8-10.44); Carbon Dioxide 29 mmol/L (23-31); Chloride 104 mmol/L (98-107); Estimated GFR 81; Globulin 2.6 g/dL (2.4-3.5); Glucose 118 mg/dL (80-115); Potassium 4.5 mmol/L (3.5-5.1); Protein, Total 6.5 g/dL (5.8-8.1); Sodium 140 mmol/L (136-145)
[2023-10-06 15:20] LABS: Troponin I Less than 0.010 ng/mL (< 0.028)
[2023-10-06] MEDS ORDERED: levETIRAcetam 500 MG (5 mL) VIAL ONE (15:25)
[2023-10-06 15:28] LABS: INR-International Normal Ratio 1.1; PTT 29.7 sec (22.9-36.1)
[2023-10-06] MEDS ORDERED: Lidocaine 1% PF 5 ML VIAL ONE (15:44)
== END 2023-10-06 22:59 ==
LOC: ERS 14:30
DX: R56.9 Unspecified convulsions (principal); L02.412 Cutaneous abscess of left axilla; R29.710 NIHSS score 10; E78.5 Hyperlipidemia, unspecified; I10 Essential (primary) hypertension; Z87.891 Personal history of nicotine dependence; Z79.899 Other long term (current) drug therapy
CPT/HCPCS: 10060; 70450; 70496; 70498; 71045; 80053; 82962; 84484; 85025; 85610; 85730; 93005; 96365; 96366; 96375; 96376; 99285; J1953; J2060; 36415; 36416; Q9967

== ENCOUNTER 2023-10-09 21:28 | Emergency (ER) | payer MEDICARE ==
[2023-10-09] MEDS ORDERED: LORazepam 2 MG/ML SYR.(CARPUJECT) ONE (22:47)
[2023-10-09] MEDS ORDERED: Divalproex Sodium 500 MG ER.TAB PO SCH (23:00)
[2023-10-09 23:01] LABS: #Basophils 0.1 thou/uL (0.0-0.2); #Eosinphils 0.4 thou/uL (0.0-0.7); #Neutrophils 5.6 thou/uL (1.40-6.50); %Basophils 0.6 % (0.0-1.0); %Eosinophils 3.6 % (0.0-10.0); %Lymphocytes 26.8 % (21.0-51.0); %Neutrophils 58.2 % (42.0-75.0); Hematocrit 36.5 % (42.0-52.0); Hemoglobin 12.5 g/dL (14.0-18.0); Mean Corpuscular HGB CONC 34.2 g/dL (32.0-36.0); Mean Corpuscular Hemoglobin 28.6 pg (27.0-31.0); Mean Corpuscular Volume 83.5 fl (78.0-98.0); Mean Platelet Volume 10.7 fL (7.4-10.4); Platelet Count 213 10x3/uL (130-400); RBC Distribution Width 14.6 % (11.5-14.5); Red Blood Cell (RBC) Count 4.37 mill/uL (4.70-6.10); White Blood Cell (WBC) Count 9.6 10x3/uL (4.8-10.8)
[2023-10-09 23:46] LABS: ALT (SGPT) 21 U/L (8-55); AST (SGOT) 17 U/L (5-34); Albumin 3.6 g/dL (3.4-4.8); Alkaline Phosphatase 74 U/L (40-110); Anion Gap 14 mmol/L (10-20); BUN (Urea Nitrogen) 28 mg/dL (8.4-25.7); Bilirubin, Total 0.2 mg/dL (0.2-1.2); Calc. Creatinine Clearance 0 mL/min (70-130); Calcium 8.8 mg/dL (7.8-10.44); Carbon Dioxide 27 mmol/L (23-31); Chloride 102 mmol/L (98-107); Estimated GFR 86; Globulin 2.7 g/dL (2.4-3.5); Glucose 100 mg/dL (80-115); Protein, Total 6.3 g/dL (5.8-8.1); Sodium 139 mmol/L (136-145)
== END 2023-10-10 05:45 | disposition home or self-care (01) ==
LOC: ERS 21:28
DX: G40.909 Epilepsy, unspecified, not intractable, without status epilepticus (principal); E78.5 Hyperlipidemia, unspecified; I10 Essential (primary) hypertension; Z87.891 Personal history of nicotine dependence; Z79.82 Long term (current) use of aspirin; Z79.899 Other long term (current) drug therapy
CPT/HCPCS: 80053; 82962; 85025; 93005; J2060; 36416; 96374

== ENCOUNTER 2023-11-06 09:01 | Outpatient (CLI) | payer MEDICARE ==
[2023-11-06] MEDS ORDERED: Iopamidol 370 76% 100 ML VIAL ONE (13:46)
== END 2023-11-06 09:02 | disposition home or self-care (01) ==
LOC: CT 09:01
PROVIDERS: ATTEND Psychiatry & Neurology Neurology
DX: G03.9 Meningitis, unspecified (principal); G93.89 Other specified disorders of brain
CPT/HCPCS: 70470; Q9967

== ENCOUNTER 2023-11-14 16:16 | Inpatient (IN) | payer MEDICARE ==
[2023-11-14 17:35] LABS: #Eosinphils 0.2 thou/uL (0.0-0.7); #Monocytes 0.8 thou/uL (0.11-0.59); #Neutrophils 5.2 thou/uL (1.40-6.50); %Basophils 0.5 % (0.0-1.0); %Eosinophils 2.4 % (0.0-10.0); %Lymphocytes 21.8 % (21.0-51.0); %Neutrophils 64.6 % (42.0-75.0); Hemoglobin 13.2 g/dL (14.0-18.0); Mean Corpuscular HGB CONC 33.8 g/dL (32.0-36.0); Mean Corpuscular Hemoglobin 28.8 pg (27.0-31.0); Platelet Count 200 10x3/uL (130-400); RBC Distribution Width 15.7 % (11.5-14.5); Red Blood Cell (RBC) Count 4.59 mill/uL (4.70-6.10)
[2023-11-14 17:56] LABS: ALT (SGPT) 26 U/L (8-55); AST (SGOT) 20 U/L (5-34); Albumin 3.6 g/dL (3.4-4.8); Alkaline Phosphatase 69 U/L (40-110); Anion Gap 15 mmol/L (10-20); BUN (Urea Nitrogen) 30 mg/dL (8.4-25.7); Bilirubin, Total 0.2 mg/dL (0.2-1.2); CK (CPK) 36 U/L (30-200); Calc. Creatinine Clearance 0 mL/min (70-130); Calcium 8.8 mg/dL (7.8-10.44); Carbon Dioxide 26 mmol/L (23-31); Chloride 103 mmol/L (98-107); Estimated GFR 89; Glucose 110 mg/dL (80-115); Magnesium 1.9 mg/dL (1.6-2.6); Potassium 4.3 mmol/L (3.5-5.1); Protein, Total 6.6 g/dL (5.8-8.1); Sodium 140 mmol/L (136-145)
[2023-11-14 18:00] LABS: Troponin I Less than 0.010 ng/mL (< 0.028)
[2023-11-14 18:14] LABS: Influenza A by NAA Not Detected (NotDetected); Influenza B by NAA Not Detected (NotDetected); SARS-CoV-2 NAA Rapid Test Not Detected (NotDetected)
[2023-11-14] MEDS ORDERED: Divalproex Sodium 250 MG (DR) TAB ONE (19:47)
[2023-11-14] MEDS ORDERED: levETIRAcetam 500 MG TAB ONE (19:47)
[2023-11-14 20:20] LABS: Bacteria/HPF None Seen HPF (None Seen); Bilirubin Negative (Negative); Blood, Urine Trace (Negative); CAUTI Indications for Culture Alt mental st,lethar; Clarity Clear (Clear); Glucose, Urine (Dipstick) 30 mg/dL (Negative); Ketone, Urine Trace mg/dL (Negative); Leukocyte Negative Leu/uL (Negative); Nitrite Negative (Negative); Protein, Urine (Dipstick) Negative (Neg-Trace); RBC/HPF 0-3 HPF (0-3); Specific Gravity, Urine 1.031 (1.002-1.036); Squamous Epithelial None Seen HPF (0-3); Urobilinogen Normal mg/dL (Less than 2); WBC/HPF 0-3 HPF (0-3); pH, Urine 5.5 (5.0-9.0)
[2023-11-14 20:24] LABS: Urine Culture Reflex No No
[2023-11-15 04:55] LABS: #Basophils 0.1 thou/uL (0.0-0.2); #Eosinphils 0.3 thou/uL (0.0-0.7); #Monocytes 0.8 thou/uL (0.11-0.59); #Neutrophils 4.2 thou/uL (1.40-6.50); %Basophils 0.7 % (0.0-1.0); %Eosinophils 3.9 % (0.0-10.0); %Lymphocytes 28.6 % (21.0-51.0); %Monocytes 10.3 % (0.0-10.0); %Neutrophils 55.8 % (42.0-75.0); Hematocrit 35.5 % (42.0-52.0); Mean Corpuscular HGB CONC 33.8 g/dL (32.0-36.0); Mean Corpuscular Hemoglobin 28.8 pg (27.0-31.0); Mean Corpuscular Volume 85.1 fl (78.0-98.0); Mean Platelet Volume 10.9 fL (7.4-10.4); Platelet Count 194 10x3/uL (130-400); RBC Distribution Width 15.6 % (11.5-14.5); Red Blood Cell (RBC) Count 4.17 mill/uL (4.70-6.10); White Blood Cell (WBC) Count 7.4 10x3/uL (4.8-10.8)
[2023-11-15 05:22] LABS: Anion Gap 11 mmol/L (10-20); BUN (Urea Nitrogen) 25 mg/dL (8.4-25.7); Calc. Creatinine Clearance 92 mL/min (70-130); Calcium 8.4 mg/dL (7.8-10.44); Carbon Dioxide 28 mmol/L (23-31); Chloride 104 mmol/L (98-107); Estimated GFR 95; Glucose 93 mg/dL (80-115); Potassium 3.9 mmol/L (3.5-5.1); Sodium 139 mmol/L (136-145)
[2023-11-15] MEDS ORDERED: Acetaminophen 325 MG TAB PO PRN (08:54)
[2023-11-15] MEDS ORDERED: Ondansetron ODT 4 MG TAB PO PRN (08:54)
[2023-11-15] MEDS ORDERED: Acetaminophen 650 MG Suppository PR PRN (08:54)
[2023-11-15] MEDS ORDERED: hydrALAZINE 20 MG/ML VIAL SLOW IVP PRN (08:54)
[2023-11-15] MEDS ORDERED: Divalproex Sodium 250 MG (DR) TAB PO SCH (09:00)
[2023-11-15] MEDS ORDERED: Famotidine/PF 20 mg/2ml Vial ONE (09:02)
[2023-11-15] MEDS ORDERED: levETIRAcetam 500 MG (5 mL) VIAL ONE (09:02)
[2023-11-15] MEDS ORDERED: Enoxaparin 40 MG (0.4 mL) SYRINGE ONE (09:02)
[2023-11-15] MEDS ORDERED: Aspirin 81 mg Enteric Coated Tablet ONE (10:15)
[2023-11-15] MEDS ORDERED: Clopidogrel Bisulfate 75 MG TAB ONE (10:15)
[2023-11-15] MEDS: Aspirin 81 mg Enteric Coated Tablet PO SCH (10:17)
[2023-11-15] MEDS: Enoxaparin 40 MG (0.4 mL) SYRINGE SC SCH (10:18)
[2023-11-15] MEDS: Clopidogrel Bisulfate 75 MG TAB PO SCH (10:18)
[2023-11-15] MEDS: levETIRAcetam 500 MG (5 mL) VIAL SLOW IVP SCH (10:19)
[2023-11-15] MEDS: Valproate Sodium 250 MG in Sodium Chloride 0.9% 100 ML IVPB SCH (10:19)
[2023-11-15] MEDS: Famotidine/PF 20 mg/2ml Vial SLOW IVP SCH (10:25)
[2023-11-15] MEDS ORDERED: Magnevist 469MG/ML 20 ML VIAL ONE (14:51)
[2023-11-15] MEDS: SODIUM CHLORIDE 0.9% IVPB SCH (16:53)
[2023-11-15] MEDS: ACYCLOVIR SODIUM IVPB SCH (16:53)
[2023-11-15 20:15] VITALS: BMI 27.6
[2023-11-15] MEDS: Atorvastatin Calcium 40 MG TAB PO SCH (20:39)
[2023-11-15] MEDS: Sertraline 25 MG TAB PO SCH (20:39)
[2023-11-15] MEDS ORDERED: ACYCLOVIR SODIUM IVPB SCH (22:00)
[2023-11-16 04:15] LABS: #Eosinphils 0.3 thou/uL (0.0-0.7); #Neutrophils 5.7 thou/uL (1.40-6.50); %Basophils 0.3 % (0.0-1.0); %Eosinophils 2.7 % (0.0-10.0); %Lymphocytes 23.8 % (21.0-51.0); %Monocytes 10.6 % (0.0-10.0); %Neutrophils 62.2 % (42.0-75.0); Hematocrit 37.6 % (42.0-52.0); Hemoglobin 12.8 g/dL (14.0-18.0); Mean Corpuscular Hemoglobin 28.1 pg (27.0-31.0); Mean Corpuscular Volume 82.6 fl (78.0-98.0); Platelet Count 204 10x3/uL (130-400); RBC Distribution Width 15.1 % (11.5-14.5); Red Blood Cell (RBC) Count 4.55 mill/uL (4.70-6.10); White Blood Cell (WBC) Count 9.2 10x3/uL (4.8-10.8)
[2023-11-16 04:32] LABS: Anion Gap 14 mmol/L (10-20); BUN (Urea Nitrogen) 18 mg/dL (8.4-25.7); Calc. Creatinine Clearance 94 mL/min (70-130); Calcium 8.6 mg/dL (7.8-10.44); Carbon Dioxide 25 mmol/L (23-31); Chloride 102 mmol/L (98-107); Estimated GFR 94; Glucose 99 mg/dL (80-115); Potassium 4.1 mmol/L (3.5-5.1); Sodium 137 mmol/L (136-145)
[2023-11-16] MEDS ORDERED: Sodium Bicarbonate 2.5 MEQ/5 ML SDV ONE (08:11)
[2023-11-16] MEDS ORDERED: Lidocaine 1% PF 5 ML VIAL ONE (08:11)
[2023-11-16 11:36] LABS: CSF, Glucose 58 mg/dl (40-70); CSF, Protein 44 mg/dL (15-40)
[2023-11-16 11:41] LABS: CSF Source CSF; Tube # 4
[2023-11-16 11:42] LABS: Clarity Clear (Clear)
[2023-11-16 12:48] LABS: Reference Lab Name LABCORP
[2023-11-16 12:53] LABS: Reference Lab Name LABCORP
[2023-11-16 13:19] LABS: #Eosinphils 0.2 thou/uL (0.0-0.7); #Monocytes 0.8 thou/uL (0.11-0.59); #Neutrophils 5.8 thou/uL (1.40-6.50); %Basophils 0.5 % (0.0-1.0); %Eosinophils 2.6 % (0.0-10.0); %Lymphocytes 18.5 % (21.0-51.0); Hematocrit 37.4 % (42.0-52.0); Hemoglobin 12.6 g/dL (14.0-18.0); Mean Corpuscular HGB CONC 33.7 g/dL (32.0-36.0); Mean Corpuscular Hemoglobin 28.1 pg (27.0-31.0); Mean Corpuscular Volume 83.5 fl (78.0-98.0); Mean Platelet Volume 10.8 fL (7.4-10.4); Platelet Count 185 10x3/uL (130-400); RBC Distribution Width 15.1 % (11.5-14.5); Red Blood Cell (RBC) Count 4.48 mill/uL (4.70-6.10); White Blood Cell (WBC) Count 8.4 10x3/uL (4.8-10.8)
[2023-11-17 05:10] LABS: #Basophils 0.1 thou/uL (0.0-0.2); #Eosinphils 0.3 thou/uL (0.0-0.7); #Neutrophils 5.1 thou/uL (1.40-6.50); %Basophils 0.6 % (0.0-1.0); %Eosinophils 3.9 % (0.0-10.0); %Lymphocytes 23.7 % (21.0-51.0); %Monocytes 11.9 % (0.0-10.0); %Neutrophils 59.4 % (42.0-75.0); Hematocrit 36.5 % (42.0-52.0); Hemoglobin 12.4 g/dL (14.0-18.0); Mean Corpuscular Hemoglobin 28.3 pg (27.0-31.0); Mean Corpuscular Volume 83.3 fl (78.0-98.0); Mean Platelet Volume 10.8 fL (7.4-10.4); Platelet Count 191 10x3/uL (130-400); RBC Distribution Width 15.3 % (11.5-14.5); Red Blood Cell (RBC) Count 4.38 mill/uL (4.70-6.10); White Blood Cell (WBC) Count 8.5 10x3/uL (4.8-10.8)
[2023-11-17 05:46] LABS: ALT (SGPT) 35 U/L (8-55); AST (SGOT) 29 U/L (5-34); Albumin 3.2 g/dL (3.4-4.8); Alkaline Phosphatase 72 U/L (40-110); Anion Gap 12 mmol/L (10-20); BUN (Urea Nitrogen) 15 mg/dL (8.4-25.7); Bilirubin, Total 0.3 mg/dL (0.2-1.2); Calc. Creatinine Clearance 93 mL/min (70-130); Calcium 8.6 mg/dL (7.8-10.44); Carbon Dioxide 29 mmol/L (23-31); Chloride 103 mmol/L (98-107); Estimated GFR 94; Globulin 2.6 g/dL (2.4-3.5); Glucose 107 mg/dL (80-115); Potassium 4.1 mmol/L (3.5-5.1); Protein, Total 5.8 g/dL (5.8-8.1); Sodium 140 mmol/L (136-145)
[2023-11-17 09:33] LABS: Complement-C4 19 mg/dL (15-53)
[2023-11-17 12:20] LABS: ANA Symphony (Qualitative) Negative (Negative); ANA Symphony (Quantitative) 0.2 Ratio (< 0.7 Negative); Mitochondrial Ab 0.7 U/mL (<4 Negative); dsDNA IgG Antibody 0.9 IU/mL (<10 Negative)
[2023-11-17] MEDS ORDERED: Glucagon 1 MG/ML KIT IM PRN (17:40)
[2023-11-17] MEDS ORDERED: Dextrose 5% in Water 1,000 ML IV PRN (17:40)
[2023-11-17] MEDS ORDERED: Dextrose 50% Abboject 50 ML SYRINGE SLOW IVP PRN (17:40)
[2023-11-17] MEDS: methylPREDNISolone Sod Succ 1 GM in Sodium Chloride 0.9% 250 ML 250 ML IVPB SCH (18:56)
[2023-11-17] MEDS: Divalproex Sodium 250 MG (DR) TAB PO SCH (21:10)
[2023-11-17] MEDS: Cyanocobalamin (Vitamin B-12) 1,000 MCG TAB PO SCH (21:10)
[2023-11-17] MEDS: Folic Acid 1 MG TAB PO SCH (21:10)
[2023-11-17] MEDS: levETIRAcetam 500 MG TAB PO SCH (21:10)
[2023-11-17] MEDS: Thiamine 100 MG TAB PO SCH (21:10)
[2023-11-17] MEDS: Multivit, Therapeutic 1 TAB PO SCH (21:11)
[2023-11-17] MEDS: Divalproex Sodium DR 500 MG TAB PO SCH (21:40)
[2023-11-18 04:24] LABS: #Monocytes 0.1 thou/uL (0.11-0.59); #Neutrophils 4.8 thou/uL (1.40-6.50); %Basophils 0.2 % (0.0-1.0); %Monocytes 1.2 % (0.0-10.0); %Neutrophils 84.1 % (42.0-75.0); Hematocrit 36.2 % (42.0-52.0); Hemoglobin 12.3 g/dL (14.0-18.0); Mean Corpuscular Hemoglobin 27.8 pg (27.0-31.0); Mean Corpuscular Volume 81.7 fl (78.0-98.0); Mean Platelet Volume 11.2 fL (7.4-10.4); Platelet Count 205 10x3/uL (130-400); RBC Distribution Width 14.7 % (11.5-14.5); Red Blood Cell (RBC) Count 4.43 mill/uL (4.70-6.10); White Blood Cell (WBC) Count 5.7 10x3/uL (4.8-10.8)
[2023-11-18] MEDS: HumaLOG 300 UNITS/3 ML VIAL SC PRN (04:57)
[2023-11-18 05:00] LABS: ALT (SGPT) 38 U/L (8-55); AST (SGOT) 26 U/L (5-34); Albumin 3.3 g/dL (3.4-4.8); Alkaline Phosphatase 72 U/L (40-110); Anion Gap 13 mmol/L (10-20); BUN (Urea Nitrogen) 18 mg/dL (8.4-25.7); Bilirubin, Total 0.2 mg/dL (0.2-1.2); Calc. Creatinine Clearance 75 mL/min (70-130); Calcium 8.6 mg/dL (7.8-10.44); Carbon Dioxide 23 mmol/L (23-31); Chloride 105 mmol/L (98-107); Estimated GFR 77; Globulin 2.9 g/dL (2.4-3.5); Glucose 223 mg/dL (80-115); Magnesium 2.1 mg/dL (1.6-2.6); Potassium 4.2 mmol/L (3.5-5.1); Protein, Total 6.2 g/dL (5.8-8.1); Sodium 137 mmol/L (136-145)
[2023-11-18] MEDS: Divalproex Sodium 250 MG (DR) TAB PO SCH (09:28)
[2023-11-18] MEDS: Heparin 5,000 UNITS/ML VIAL SC SCH (09:30)
[2023-11-19 04:47] LABS: #Monocytes 0.3 thou/uL (0.11-0.59); #Neutrophils 12.4 thou/uL (1.40-6.50); %Basophils 0.1 % (0.0-1.0); %Lymphocytes 9.2 % (21.0-51.0); %Monocytes 2.3 % (0.0-10.0); %Neutrophils 87.6 % (42.0-75.0); Hematocrit 33.6 % (42.0-52.0); Hemoglobin 11.4 g/dL (14.0-18.0); Mean Corpuscular HGB CONC 33.9 g/dL (32.0-36.0); Mean Corpuscular Hemoglobin 28.5 pg (27.0-31.0); Mean Platelet Volume 11.4 fL (7.4-10.4); Platelet Count 215 10x3/uL (130-400); RBC Distribution Width 15.4 % (11.5-14.5); White Blood Cell (WBC) Count 14.2 10x3/uL (4.8-10.8)
[2023-11-19 05:39] LABS: Anion Gap 14 mmol/L (10-20); BUN (Urea Nitrogen) 22 mg/dL (8.4-25.7); Calc. Creatinine Clearance 86 mL/min (70-130); Calcium 8.5 mg/dL (7.8-10.44); Carbon Dioxide 25 mmol/L (23-31); Chloride 106 mmol/L (98-107); Estimated GFR 90; Glucose 179 mg/dL (80-115); Potassium 4.1 mmol/L (3.5-5.1); Sodium 141 mmol/L (136-145)
[2023-11-20 04:44] LABS: #Monocytes 0.1 thou/uL (0.11-0.59); #Neutrophils 9.4 thou/uL (1.40-6.50); %Basophils 0.2 % (0.0-1.0); %Lymphocytes 10.7 % (21.0-51.0); %Monocytes 1.3 % (0.0-10.0); %Neutrophils 86.4 % (42.0-75.0); Hematocrit 32.2 % (42.0-52.0); Hemoglobin 10.7 g/dL (14.0-18.0); Mean Corpuscular HGB CONC 33.2 g/dL (32.0-36.0); Mean Corpuscular Hemoglobin 28.7 pg (27.0-31.0); Mean Corpuscular Volume 86.3 fl (78.0-98.0); Mean Platelet Volume 11.6 fL (7.4-10.4); Platelet Count 208 10x3/uL (130-400); RBC Distribution Width 15.9 % (11.5-14.5); Red Blood Cell (RBC) Count 3.73 mill/uL (4.70-6.10); White Blood Cell (WBC) Count 10.9 10x3/uL (4.8-10.8)
[2023-11-20 05:25] LABS: Anion Gap 14 mmol/L (10-20); BUN (Urea Nitrogen) 20 mg/dL (8.4-25.7); Calc. Creatinine Clearance 97 mL/min (70-130); Calcium 8.4 mg/dL (7.8-10.44); Carbon Dioxide 23 mmol/L (23-31); Chloride 106 mmol/L (98-107); Estimated GFR 95; Glucose 155 mg/dL (80-115); Potassium 4.3 mmol/L (3.5-5.1); Sodium 139 mmol/L (136-145)
[2023-11-20 09:19] LABS: HIV (1/2) Antibody/Antigen Non-Reactive (NonReactive); HIV 1/2 INDEX 0.25 S/CO (<1.00)
[2023-11-20] MEDS ORDERED: Magnevist 469MG/ML 20 ML VIAL ONE ×2 (10:12)
[2023-11-20 13:25] LABS: West Nile Virus IgM Ab - CSF Negative (Negative)
[2023-11-21 04:39] LABS: #Eosinphils 0.1 thou/uL (0.0-0.7); #Monocytes 0.9 thou/uL (0.11-0.59); #Neutrophils 5.2 thou/uL (1.40-6.50); %Basophils 0.4 % (0.0-1.0); %Eosinophils 0.5 % (0.0-10.0); %Monocytes 8.7 % (0.0-10.0); Hematocrit 33.1 % (42.0-52.0); Hemoglobin 11.3 g/dL (14.0-18.0); Mean Corpuscular HGB CONC 34.1 g/dL (32.0-36.0); Mean Corpuscular Hemoglobin 28.8 pg (27.0-31.0); Mean Corpuscular Volume 84.4 fl (78.0-98.0); Mean Platelet Volume 11.6 fL (7.4-10.4); Platelet Count 205 10x3/uL (130-400); RBC Distribution Width 16.4 % (11.5-14.5); Red Blood Cell (RBC) Count 3.92 mill/uL (4.70-6.10); White Blood Cell (WBC) Count 10.6 10x3/uL (4.8-10.8)
[2023-11-21 04:53] LABS: Anion Gap 10 mmol/L (10-20); BUN (Urea Nitrogen) 25 mg/dL (8.4-25.7); Calc. Creatinine Clearance 85 mL/min (70-130); Calcium 8.4 mg/dL (7.8-10.44); Carbon Dioxide 28 mmol/L (23-31); Chloride 104 mmol/L (98-107); Estimated GFR 89; Glucose 98 mg/dL (80-115); Sodium 138 mmol/L (136-145)
[2023-11-21] MEDS ORDERED: OCTAGAM 10% (10 GM/100 ML VIAL) IVPB SCH (14:45)
[2023-11-21 15:14] LABS: Cytoplasmic (C-ANCA) <1:20 titer (Neg:<1:20); Myeloperoxidase AutoAbs <0.2 units (0.0-0.9); Perinuclear (P-ANCA) <1:20 titer (Neg:<1:20); Proteinase-3 AutoAbs Less than 0.2 units (0.0-0.9)
[2023-11-21] MEDS: Privigen 20 GM, Privigen 10 GM in Admixture Fee 1 EACH IVPB SCH (17:59)
[2023-11-22 05:50] LABS: #Eosinphils 0.3 thou/uL (0.0-0.7); #Monocytes 0.8 thou/uL (0.11-0.59); #Neutrophils 3.4 thou/uL (1.40-6.50); %Basophils 0.4 % (0.0-1.0); %Eosinophils 3.5 % (0.0-10.0); %Lymphocytes 36.6 % (21.0-51.0); %Monocytes 11.3 % (0.0-10.0); %Neutrophils 45.8 % (42.0-75.0); Hemoglobin 11.9 g/dL (14.0-18.0); Mean Corpuscular Hemoglobin 28.7 pg (27.0-31.0); Mean Corpuscular Volume 84.3 fl (78.0-98.0); Mean Platelet Volume 11.4 fL (7.4-10.4); Platelet Count 204 10x3/uL (130-400); RBC Distribution Width 16.1 % (11.5-14.5); Red Blood Cell (RBC) Count 4.15 mill/uL (4.70-6.10); White Blood Cell (WBC) Count 7.4 10x3/uL (4.8-10.8)
[2023-11-22 06:04] LABS: Anion Gap 13 mmol/L (10-20); BUN (Urea Nitrogen) 23 mg/dL (8.4-25.7); Calc. Creatinine Clearance 87 mL/min (70-130); Calcium 8.3 mg/dL (7.8-10.44); Carbon Dioxide 27 mmol/L (23-31); Chloride 101 mmol/L (98-107); Estimated GFR 91; Glucose 94 mg/dL (80-115); Potassium 3.8 mmol/L (3.5-5.1); Sodium 137 mmol/L (136-145)
[2023-11-22 11:15] LABS: HIV-1 Quantitative, RNA PCR <20 copies/mL (.)
[2023-11-22 19:12] LABS: Aspergillus AB-CSF <1:1 (.); Blastomyces AB-CSF <1:1 (.); Histoplasma Mycelial AB-CSF <1:1 (.); Histoplasma Yeast AB-CSF <1:1 (.)
[2023-11-23 05:17] LABS: #Eosinphils 0.3 thou/uL (0.0-0.7); #Monocytes 0.8 thou/uL (0.11-0.59); #Neutrophils 2.9 thou/uL (1.40-6.50); %Basophils 0.5 % (0.0-1.0); %Eosinophils 4.3 % (0.0-10.0); %Lymphocytes 35.5 % (21.0-51.0); %Monocytes 12.7 % (0.0-10.0); %Neutrophils 45.2 % (42.0-75.0); Hematocrit 34.6 % (42.0-52.0); Hemoglobin 11.8 g/dL (14.0-18.0); Mean Corpuscular HGB CONC 34.1 g/dL (32.0-36.0); Mean Corpuscular Hemoglobin 28.6 pg (27.0-31.0); Mean Corpuscular Volume 83.8 fl (78.0-98.0); Mean Platelet Volume 11.3 fL (7.4-10.4); Platelet Count 205 10x3/uL (130-400); RBC Distribution Width 16.1 % (11.5-14.5); Red Blood Cell (RBC) Count 4.13 mill/uL (4.70-6.10); White Blood Cell (WBC) Count 6.5 10x3/uL (4.8-10.8)
[2023-11-23 05:37] LABS: Anion Gap 11 mmol/L (10-20); BUN (Urea Nitrogen) 23 mg/dL (8.4-25.7); Calc. Creatinine Clearance 92 mL/min (70-130); Calcium 8.4 mg/dL (7.8-10.44); Carbon Dioxide 27 mmol/L (23-31); Chloride 101 mmol/L (98-107); Estimated GFR 94; Glucose 104 mg/dL (80-115); Potassium 3.9 mmol/L (3.5-5.1); Sodium 135 mmol/L (136-145)
[2023-11-24 05:19] LABS: #Eosinphils 0.3 thou/uL (0.0-0.7); #Monocytes 0.8 thou/uL (0.11-0.59); #Neutrophils 3.1 thou/uL (1.40-6.50); %Basophils 0.5 % (0.0-1.0); %Eosinophils 4.7 % (0.0-10.0); %Lymphocytes 34.5 % (21.0-51.0); %Monocytes 12.7 % (0.0-10.0); %Neutrophils 45.8 % (42.0-75.0); Hematocrit 36.5 % (42.0-52.0); Hemoglobin 12.3 g/dL (14.0-18.0); Mean Corpuscular HGB CONC 33.7 g/dL (32.0-36.0); Mean Corpuscular Volume 83.1 fl (78.0-98.0); Mean Platelet Volume 11.2 fL (7.4-10.4); Platelet Count 216 10x3/uL (130-400); RBC Distribution Width 16.4 % (11.5-14.5); Red Blood Cell (RBC) Count 4.39 mill/uL (4.70-6.10); White Blood Cell (WBC) Count 6.6 10x3/uL (4.8-10.8)
[2023-11-24 05:38] LABS: Anion Gap 10 mmol/L (10-20); BUN (Urea Nitrogen) 22 mg/dL (8.4-25.7); Calc. Creatinine Clearance 85 mL/min (70-130); Calcium 8.6 mg/dL (7.8-10.44); Carbon Dioxide 26 mmol/L (23-31); Chloride 102 mmol/L (98-107); Estimated GFR 89; Glucose 96 mg/dL (80-115); Potassium 3.9 mmol/L (3.5-5.1); Sodium 134 mmol/L (136-145)
[2023-11-24 13:15] LABS: CSF IgG Index 0.8 (0.0-0.7); CSF IgG Synthesis Rate 7.9 mg/day (-9.9 TO +3.3); IgG Serum 1085 mg/dL (603-1613); IgG/Alb CSF 0.25 (0.00-0.25)
[2023-11-24] MEDS ORDERED: Sodium Bicarbonate 2.5 MEQ/5 ML SDV ONE (13:36)
[2023-11-24] MEDS: Privigen 20 GM, Privigen 10 GM in Admixture Fee 1 EACH IVPB SCH (17:25)
[2023-11-25 05:07] LABS: #Eosinphils 0.2 thou/uL (0.0-0.7); #Monocytes 1.1 thou/uL (0.11-0.59); #Neutrophils 3.3 thou/uL (1.40-6.50); %Basophils 0.6 % (0.0-1.0); %Lymphocytes 30.3 % (21.0-51.0); %Monocytes 15.7 % (0.0-10.0); %Neutrophils 49.1 % (42.0-75.0); Hematocrit 36.7 % (42.0-52.0); Hemoglobin 12.4 g/dL (14.0-18.0); Mean Corpuscular HGB CONC 33.8 g/dL (32.0-36.0); Mean Corpuscular Hemoglobin 28.3 pg (27.0-31.0); Mean Corpuscular Volume 83.8 fl (78.0-98.0); Mean Platelet Volume 11.2 fL (7.4-10.4); Platelet Count 209 10x3/uL (130-400); RBC Distribution Width 16.8 % (11.5-14.5); Red Blood Cell (RBC) Count 4.38 mill/uL (4.70-6.10); White Blood Cell (WBC) Count 6.7 10x3/uL (4.8-10.8)
[2023-11-25 05:24] LABS: Anion Gap 10 mmol/L (10-20); BUN (Urea Nitrogen) 22 mg/dL (8.4-25.7); Calc. Creatinine Clearance 80 mL/min (70-130); Calcium 8.5 mg/dL (7.8-10.44); Carbon Dioxide 26 mmol/L (23-31); Chloride 103 mmol/L (98-107); Estimated GFR 82; Glucose 107 mg/dL (80-115); Potassium 4.1 mmol/L (3.5-5.1); Sodium 135 mmol/L (136-145)
[2023-11-26 05:46] LABS: #Eosinphils 0.1 thou/uL (0.0-0.7); #Neutrophils 3.4 thou/uL (1.40-6.50); %Basophils 0.3 % (0.0-1.0); %Eosinophils 1.9 % (0.0-10.0); %Lymphocytes 29.4 % (21.0-51.0); %Monocytes 15.2 % (0.0-10.0); %Neutrophils 52.3 % (42.0-75.0); Hematocrit 35.1 % (42.0-52.0); Hemoglobin 12.1 g/dL (14.0-18.0); Mean Corpuscular HGB CONC 34.5 g/dL (32.0-36.0); Mean Corpuscular Hemoglobin 28.7 pg (27.0-31.0); Mean Corpuscular Volume 83.4 fl (78.0-98.0); Platelet Count 196 10x3/uL (130-400); RBC Distribution Width 16.8 % (11.5-14.5); Red Blood Cell (RBC) Count 4.21 mill/uL (4.70-6.10); White Blood Cell (WBC) Count 6.4 10x3/uL (4.8-10.8)
[2023-11-26 06:32] LABS: Anion Gap 11 mmol/L (10-20); BUN (Urea Nitrogen) 18 mg/dL (8.4-25.7); Calc. Creatinine Clearance 91 mL/min (70-130); Calcium 8.4 mg/dL (7.8-10.44); Carbon Dioxide 26 mmol/L (23-31); Chloride 101 mmol/L (98-107); Estimated GFR 93; Glucose 92 mg/dL (80-115); Potassium 3.9 mmol/L (3.5-5.1); Sodium 134 mmol/L (136-145)
[2023-11-26 11:37] LABS: Final Culture No virus isolated. (.)
[2023-11-27 05:16] LABS: Hematocrit 35.4 % (42.0-52.0); Hemoglobin 12.2 g/dL (14.0-18.0); Manual Diff?? YES; Mean Corpuscular HGB CONC 34.5 g/dL (32.0-36.0); Mean Corpuscular Hemoglobin 28.8 pg (27.0-31.0); Mean Corpuscular Volume 83.7 fl (78.0-98.0); Mean Platelet Volume 11.1 fL (7.4-10.4); Platelet Count 191 10x3/uL (130-400); RBC Distribution Width 16.8 % (11.5-14.5); Red Blood Cell (RBC) Count 4.23 mill/uL (4.70-6.10); White Blood Cell (WBC) Count 5.3 10x3/uL (4.8-10.8)
[2023-11-27 05:19] LABS: Delete Auto Diff?? YES
[2023-11-27 05:49] LABS: CellaVision Operator ID lab.abc; Eosinophils 4 % (0-10); Large Platelets 2.9 % (0-5); Lymphocytes 33 % (21-51); Monocytes 15 % (0-10); Neutrophil 45 % (42-75); Platelet Adequacy Comment Platelets Normal; RBC Morphology Within Normal Limits; Reactive Lymphocytes 2 % (0-10); Smudge Cells 25.5 %; Total Cell Count 102
[2023-11-27 05:51] LABS: Anion Gap 13 mmol/L (10-20); BUN (Urea Nitrogen) 22 mg/dL (8.4-25.7); Calc. Creatinine Clearance 90 mL/min (70-130); Calcium 8.4 mg/dL (7.8-10.44); Carbon Dioxide 24 mmol/L (23-31); Chloride 102 mmol/L (98-107); Estimated GFR 93; Glucose 96 mg/dL (80-115); Potassium 4.1 mmol/L (3.5-5.1); Sodium 135 mmol/L (136-145)
[2023-11-27] MEDS ORDERED: Sodium Bicarbonate 2.5 MEQ/5 ML SDV ONE (10:32)
[2023-11-27] MEDS: Lorazepam 2 MG/ML VIAL SLOW IVP SCH (11:29)
[2023-11-27 16:30] LABS: Reference Lab Name LABCORP
[2023-11-28 04:35] LABS: #Eosinphils 0.1 thou/uL (0.0-0.7); #Monocytes 0.9 thou/uL (0.11-0.59); #Neutrophils 1.7 thou/uL (1.40-6.50); %Basophils 0.8 % (0.0-1.0); %Eosinophils 1.9 % (0.0-10.0); %Lymphocytes 40.1 % (21.0-51.0); %Monocytes 19.7 % (0.0-10.0); %Neutrophils 36.4 % (42.0-75.0); Hematocrit 36.3 % (42.0-52.0); Hemoglobin 12.3 g/dL (14.0-18.0); Mean Corpuscular HGB CONC 33.9 g/dL (32.0-36.0); Mean Corpuscular Hemoglobin 28.6 pg (27.0-31.0); Mean Corpuscular Volume 84.4 fl (78.0-98.0); Mean Platelet Volume 10.9 fL (7.4-10.4); Platelet Count 180 10x3/uL (130-400); RBC Distribution Width 16.8 % (11.5-14.5); White Blood Cell (WBC) Count 4.7 10x3/uL (4.8-10.8)
[2023-11-28 04:55] LABS: Anion Gap 10 mmol/L (10-20); BUN (Urea Nitrogen) 21 mg/dL (8.4-25.7); Calc. Creatinine Clearance 91 mL/min (70-130); Calcium 8.4 mg/dL (7.8-10.44); Carbon Dioxide 28 mmol/L (23-31); Chloride 101 mmol/L (98-107); Estimated GFR 93; Glucose 90 mg/dL (80-115); Potassium 3.7 mmol/L (3.5-5.1); Sodium 135 mmol/L (136-145)
[2023-11-30 05:16] LABS: #Eosinphils 0.2 thou/uL (0.0-0.7); #Monocytes 0.7 thou/uL (0.11-0.59); #Neutrophils 2.4 thou/uL (1.40-6.50); %Basophils 0.4 % (0.0-1.0); %Lymphocytes 37.5 % (21.0-51.0); %Monocytes 12.5 % (0.0-10.0); Hematocrit 36.2 % (42.0-52.0); Hemoglobin 12.2 g/dL (14.0-18.0); Mean Corpuscular HGB CONC 33.7 g/dL (32.0-36.0); Mean Corpuscular Hemoglobin 28.7 pg (27.0-31.0); Mean Corpuscular Volume 85.2 fl (78.0-98.0); Mean Platelet Volume 11.1 fL (7.4-10.4); Platelet Count 166 10x3/uL (130-400); RBC Distribution Width 16.7 % (11.5-14.5); Red Blood Cell (RBC) Count 4.25 mill/uL (4.70-6.10); White Blood Cell (WBC) Count 5.3 10x3/uL (4.8-10.8)
[2023-11-30 05:36] LABS: Anion Gap 10 mmol/L (10-20); BUN (Urea Nitrogen) 18 mg/dL (8.4-25.7); Calc. Creatinine Clearance 96 mL/min (70-130); Calcium 8.8 mg/dL (7.8-10.44); Carbon Dioxide 28 mmol/L (23-31); Chloride 102 mmol/L (98-107); Estimated GFR 95; Glucose 92 mg/dL (80-115); Potassium 3.8 mmol/L (3.5-5.1); Sodium 136 mmol/L (136-145)
[2023-11-30] MEDS: Aspirin 81 mg Enteric Coated Tablet PO SCH (08:57)
[2023-11-30] MEDS: Clopidogrel Bisulfate 75 MG TAB PO SCH (08:57)
[2023-11-30] MEDS: Losartan 25 MG TAB PO SCH (08:57)
[2023-12-01 15:22] VITALS: BP 111/62; TEMP 98.1
== END 2023-12-01 16:35 | DRG 97 ==
LOC: ERS 16:16 → ERHOLD 21:31 → 2SE 11-15 19:27
PROVIDERS: ADMIT Hospitalist; ATTEND Internal Medicine
PROC: 009U3ZX Drainage of Spinal Canal, Percutaneous Approach, Diagnostic (ICD-10-PCS; principal; 2023-11-16)
PROC: B01B1ZZ Fluoroscopy of Spinal Cord using Low Osmolar Contrast (ICD-10-PCS; 2023-11-16)
PROC: 009U3ZX Drainage of Spinal Canal, Percutaneous Approach, Diagnostic (ICD-10-PCS; 2023-11-27)
PROC: B01B1ZZ Fluoroscopy of Spinal Cord using Low Osmolar Contrast (ICD-10-PCS; 2023-11-27)
DX: G04.90 Encephalitis and encephalomyelitis, unspecified (principal); G93.6 Cerebral edema; I69.353 Hemiplegia and hemiparesis following cerebral infarction affecting right non-dominant side; N17.9 Acute kidney failure, unspecified; G40.909 Epilepsy, unspecified, not intractable, without status epilepticus; I10 Essential (primary) hypertension; E78.5 Hyperlipidemia, unspecified; F12.10 Cannabis abuse, uncomplicated; Z98.890 Other specified postprocedural states; Z79.82 Long term (current) use of aspirin; Z79.899 Other long term (current) drug therapy; Z87.891 Personal history of nicotine dependence
CPT/HCPCS: 36415; 36416; 62270; 70450; 70551; 70552; 72156; 72158; 80048; 80053; 81001; 82040; 82042; 82550; 82784; 82945; 83516; 83605; 83735; 83916; 84157; 84443; 84484; 85025; 86037; 86038; 86160; 86225; 86376; 86592; 86612; 86635; 86698; 86788; 86789; 87040; 87252; 87389; 87536; 87899; 88112; 88184; 89051; 93005; 95816; 95819; A9579; J0133; J1459; J1644; J1650; J1815; J1953; J2930; J3490; J7050; S0028

== ENCOUNTER 2024-02-06 11:42 | Inpatient (IN) | payer MEDICARE ==
[2024-02-06 12:24] LABS: #Basophils 0.03 10x3/uL (0.0-0.2); #Eosinphils Less than 0.03 10x3/uL (0.0-0.7); %Basophils 0.2 % (0.0-1.0); %Eosinophils 0.1 % (0.0-10.0); %Lymphocytes 15.1 % (21.0-51.0); %Monocytes 9.1 % (0.0-10.0); %Neutrophils 74.9 % (42.0-75.0); Hemoglobin 12.7 g/dL (14.0-18.0); Mean Corpuscular HGB CONC 34.3 g/dL (32.0-36.0); Mean Corpuscular Hemoglobin 30.9 pg (27.0-31.0); Mean Platelet Volume 10.4 fL (7.4-10.4); Platelet Count 305 10x3/uL (130-400); RBC Distribution Width 16.3 % (11.5-14.5); Red Blood Cell (RBC) Count 4.11 mill/uL (4.70-6.10)
[2024-02-06 12:39] LABS: ALT (SGPT) 46 U/L (8-55); AST (SGOT) 31 U/L (5-34); Albumin 2.9 g/dL (3.4-4.8); Alkaline Phosphatase 87 U/L (40-110); Anion Gap 18 mmol/L (10-20); BUN (Urea Nitrogen) 17 mg/dL (8.4-25.7); Bilirubin, Total 0.5 mg/dL (0.2-1.2); Calc. Creatinine Clearance 0 mL/min (70-130); Calcium 9.5 mg/dL (7.8-10.44); Carbon Dioxide 21 mmol/L (23-31); Chloride 101 mmol/L (98-107); Estimated GFR 74; Globulin 4.2 g/dL (2.4-3.5); Glucose 133 mg/dL (80-115); Lipase 14 U/L (8-78); Magnesium 1.8 mg/dL (1.6-2.6); Potassium 4.2 mmol/L (3.5-5.1); Protein, Total 7.1 g/dL (5.8-8.1); Sodium 136 mmol/L (136-145)
[2024-02-06 13:05] LABS: Troponin I Less than 0.010 ng/mL (< 0.028)
[2024-02-06 15:44] LABS: Lactic Acid 1.8 mmol/L (0.5-2.2)
[2024-02-06] MEDS ORDERED: Cefepime 2 GM VIAL ONE (15:47)
[2024-02-06] MEDS ORDERED: Sodium Chloride 0.9% 100 ML ONE (15:47)
[2024-02-06 18:26] LABS: Bacteria/HPF None Seen HPF (None Seen); Bilirubin Negative (Negative); Blood, Urine Negative (Negative); CAUTI Indications for Culture Alt mental st,lethar; Clarity Turbid (Clear); Glucose, Urine (Dipstick) Normal (Negative); Ketone, Urine Negative (Negative); Leukocyte Negative Leu/uL (Negative); Nitrite Negative (Negative); Protein, Urine (Dipstick) 20 mg/dL (Neg-Trace); RBC/HPF 0-3 HPF (0-3); Specific Gravity, Urine 1.022 (1.002-1.036); Squamous Epithelial None Seen HPF (0-3); Urobilinogen Normal mg/dL (Less than 2)
[2024-02-06 18:29] LABS: Sperm/HPF 2+ HPF (None Seen)
[2024-02-06 18:31] LABS: Urine Culture Reflex No No
[2024-02-06] MEDS ORDERED: Ondansetron PF 4 MG/2 ML Vial IVP PRN (20:13)
[2024-02-06 21:39] VITALS: BMI 24.7
[2024-02-06] MEDS: Vancomycin (BATCH) 1.75 GM in Premix 1 BAG IVPB SCH (21:44)
[2024-02-06] MEDS: levETIRAcetam 500 MG TAB PO SCH (22:16)
[2024-02-06] MEDS: Acetaminophen 325 MG TAB PO PRN (22:16)
[2024-02-06] MEDS: Lacosamide 50 mg Tablet PO SCH (22:16)
[2024-02-07] MEDS: Cefepime 1 GM in Sodium Chloride 0.9% 100 ML IVPB SCH (04:24)
[2024-02-07 05:41] LABS: #Basophils 0.03 10x3/uL (0.0-0.2); %Basophils 0.3 % (0.0-1.0); %Eosinophils 2.2 % (0.0-10.0); %Lymphocytes 23.4 % (21.0-51.0); %Monocytes 9.6 % (0.0-10.0); %Neutrophils 64.2 % (42.0-75.0); Hematocrit 33.2 % (42.0-52.0); Hemoglobin 11.1 g/dL (14.0-18.0); Mean Corpuscular HGB CONC 33.4 g/dL (32.0-36.0); Mean Corpuscular Hemoglobin 30.7 pg (27.0-31.0); Mean Corpuscular Volume 91.7 fL (78.0-98.0); Mean Platelet Volume 10.2 fL (7.4-10.4); Platelet Count 233 10x3/uL (130-400); RBC Distribution Width 16.3 % (11.5-14.5); Red Blood Cell (RBC) Count 3.62 mill/uL (4.70-6.10)
[2024-02-07 07:04] LABS: Anion Gap 13 mmol/L (10-20); BUN (Urea Nitrogen) 11 mg/dL (8.4-25.7); Calc. Creatinine Clearance 110 mL/min (70-130); Calcium 8.7 mg/dL (7.8-10.44); Carbon Dioxide 24 mmol/L (23-31); Chloride 108 mmol/L (98-107); Estimated GFR 102; Glucose 95 mg/dL (80-115); Potassium 3.6 mmol/L (3.5-5.1); Sodium 141 mmol/L (136-145)
[2024-02-07 08:00] LABS: Influenza A by NAA Not Detected (NotDetected); Influenza B by NAA Not Detected (NotDetected); SARS-CoV-2 NAA Rapid Test Not Detected (NotDetected)
[2024-02-07] MEDS: Aspirin 81 mg Enteric Coated Tablet PO SCH (08:12)
[2024-02-07] MEDS: Clopidogrel Bisulfate 75 MG TAB PO SCH (08:12)
[2024-02-07] MEDS: Enoxaparin 40 MG (0.4 mL) SYRINGE SC SCH (08:12)
[2024-02-07] MEDS: Losartan 25 MG TAB PO SCH (08:12)
[2024-02-07] MEDS: Amantadine HCl 100 mg Capsule PO SCH (08:12)
[2024-02-07] MEDS: Divalproex Sodium DR 500 MG TAB PO SCH (08:13)
[2024-02-07] MEDS: Vancomycin (BATCH) 1.5 GM in Premix 1 BAG IVPB SCH (08:13)
[2024-02-07] MEDS: Sertraline 25 MG TAB PO SCH (12:05)
[2024-02-07 12:59] VITALS: BMI 24.7
[2024-02-07] MEDS: Cefepime 2 GM in Sodium Chloride 0.9% 100 ML IVPB SCH (15:59)
[2024-02-07] MEDS ORDERED: Vancomycin (BATCH) 1.5 GM in Premix 1 BAG IVPB SCH (17:00)
[2024-02-07] MEDS ORDERED: Vancomycin (BATCH) 1.75 GM in Premix 1 BAG IVPB SCH (17:00)
[2024-02-07] MEDS: Cyanocobalamin (Vitamin B-12) 1,000 MCG TAB PO SCH (20:49)
[2024-02-07] MEDS: Atorvastatin Calcium 40 MG TAB PO SCH (20:49)
[2024-02-08 05:48] LABS: #Basophils 0.04 10x3/uL (0.0-0.2); %Basophils 0.5 % (0.0-1.0); %Eosinophils 3.6 % (0.0-10.0); %Lymphocytes 27.7 % (21.0-51.0); %Monocytes 9.7 % (0.0-10.0); %Neutrophils 58.2 % (42.0-75.0); Hematocrit 34.2 % (42.0-52.0); Hemoglobin 11.5 g/dL (14.0-18.0); Mean Corpuscular HGB CONC 33.6 g/dL (32.0-36.0); Mean Corpuscular Hemoglobin 29.7 pg (27.0-31.0); Mean Corpuscular Volume 88.4 fL (78.0-98.0); Platelet Count 246 10x3/uL (130-400); RBC Distribution Width 15.9 % (11.5-14.5); Red Blood Cell (RBC) Count 3.87 mill/uL (4.70-6.10)
[2024-02-08 06:06] LABS: Anion Gap 12 mmol/L (10-20); BUN (Urea Nitrogen) 16 mg/dL (8.4-25.7); Calc. Creatinine Clearance 107 mL/min (70-130); Calcium 8.9 mg/dL (7.8-10.44); Carbon Dioxide 25 mmol/L (23-31); Chloride 104 mmol/L (98-107); Estimated GFR 101; Glucose 104 mg/dL (80-115); Potassium 3.6 mmol/L (3.5-5.1); Sodium 137 mmol/L (136-145)
[2024-02-08] MEDS: Gabapentin 100 MG CAP PO SCH (09:25)
[2024-02-08] MEDS: Sertraline 25 MG TAB PO SCH (20:28)
[2024-02-08] MEDS: levETIRAcetam 500 MG TAB PO SCH (20:29)
[2024-02-09 06:03] LABS: #Basophils 0.03 10x3/uL (0.0-0.2); %Basophils 0.4 % (0.0-1.0); %Eosinophils 3.5 % (0.0-10.0); %Lymphocytes 27.6 % (21.0-51.0); %Monocytes 11.4 % (0.0-10.0); %Neutrophils 56.7 % (42.0-75.0); Hematocrit 33.7 % (42.0-52.0); Hemoglobin 11.5 g/dL (14.0-18.0); Mean Corpuscular HGB CONC 34.1 g/dL (32.0-36.0); Mean Corpuscular Hemoglobin 30.3 pg (27.0-31.0); Mean Corpuscular Volume 88.9 fL (78.0-98.0); Platelet Count 263 10x3/uL (130-400); RBC Distribution Width 15.9 % (11.5-14.5); Red Blood Cell (RBC) Count 3.79 mill/uL (4.70-6.10)
[2024-02-09 06:36] LABS: Anion Gap 11 mmol/L (10-20); BUN (Urea Nitrogen) 17 mg/dL (8.4-25.7); Calc. Creatinine Clearance 109 mL/min (70-130); Calcium 8.8 mg/dL (7.8-10.44); Carbon Dioxide 27 mmol/L (23-31); Chloride 101 mmol/L (98-107); Estimated GFR 101; Glucose 108 mg/dL (80-115); Potassium 3.7 mmol/L (3.5-5.1); Sodium 135 mmol/L (136-145)
[2024-02-10] MEDS: Sodium Chloride 0.9% 500 ML IV SCH (17:39)
[2024-02-11 13:21] LABS: Anion Gap 12 mmol/L (10-20); BUN (Urea Nitrogen) 17 mg/dL (8.4-25.7); Calc. Creatinine Clearance 99 mL/min (70-130); Calcium 8.8 mg/dL (7.8-10.44); Carbon Dioxide 27 mmol/L (23-31); Chloride 104 mmol/L (98-107); Estimated GFR 98; Glucose 128 mg/dL (80-115); Sodium 139 mmol/L (136-145)
[2024-02-12 07:59] LABS: #Basophils 0.04 10x3/uL (0.0-0.2); %Basophils 0.7 % (0.0-1.0); %Eosinophils 3.8 % (0.0-10.0); %Lymphocytes 41.1 % (21.0-51.0); %Neutrophils 44.1 % (42.0-75.0); Hematocrit 40.8 % (42.0-52.0); Hemoglobin 13.8 g/dL (14.0-18.0); Mean Corpuscular HGB CONC 33.8 g/dL (32.0-36.0); Mean Corpuscular Hemoglobin 30.1 pg (27.0-31.0); Mean Corpuscular Volume 89.1 fL (78.0-98.0); Mean Platelet Volume 9.8 fL (7.4-10.4); Platelet Count 307 10x3/uL (130-400); RBC Distribution Width 15.9 % (11.5-14.5); Red Blood Cell (RBC) Count 4.58 mill/uL (4.70-6.10)
[2024-02-12 08:44] LABS: Anion Gap 16 mmol/L (10-20); BUN (Urea Nitrogen) 22 mg/dL (8.4-25.7); Calc. Creatinine Clearance 100 mL/min (70-130); Calcium 9.4 mg/dL (7.8-10.44); Carbon Dioxide 25 mmol/L (23-31); Chloride 103 mmol/L (98-107); Estimated GFR 98; Glucose 103 mg/dL (80-115); Potassium 3.9 mmol/L (3.5-5.1); Sodium 140 mmol/L (136-145)
[2024-02-12] MEDS: Gabapentin 100 MG CAP PO SCH (16:26)
[2024-02-13 05:34] LABS: #Basophils 0.04 10x3/uL (0.0-0.2); %Basophils 0.6 % (0.0-1.0); %Eosinophils 4.5 % (0.0-10.0); %Lymphocytes 36.7 % (21.0-51.0); %Monocytes 10.2 % (0.0-10.0); %Neutrophils 47.7 % (42.0-75.0); Hematocrit 36.8 % (42.0-52.0); Hemoglobin 12.3 g/dL (14.0-18.0); Mean Corpuscular HGB CONC 33.4 g/dL (32.0-36.0); Mean Corpuscular Hemoglobin 29.9 pg (27.0-31.0); Mean Corpuscular Volume 89.5 fL (78.0-98.0); Mean Platelet Volume 9.9 fL (7.4-10.4); Platelet Count 266 10x3/uL (130-400); RBC Distribution Width 15.9 % (11.5-14.5); Red Blood Cell (RBC) Count 4.11 mill/uL (4.70-6.10)
[2024-02-13 05:53] LABS: Anion Gap 12 mmol/L (10-20); BUN (Urea Nitrogen) 28 mg/dL (8.4-25.7); Calc. Creatinine Clearance 106 mL/min (70-130); Calcium 8.7 mg/dL (7.8-10.44); Carbon Dioxide 25 mmol/L (23-31); Chloride 105 mmol/L (98-107); Estimated GFR 100; Glucose 102 mg/dL (80-115); Potassium 3.6 mmol/L (3.5-5.1); Sodium 138 mmol/L (136-145)
[2024-02-13] MEDS: Gabapentin 300 MG CAP PO SCH (07:51)
[2024-02-13] MEDS: Privigen 20 GM, Privigen 10 GM in Admixture Fee 1 EACH IVPB SCH (17:36)
[2024-02-16 06:20] LABS: Anion Gap 13 mmol/L (10-20); BUN (Urea Nitrogen) 24 mg/dL (8.4-25.7); Calc. Creatinine Clearance 112 mL/min (70-130); Calcium 9.2 mg/dL (7.8-10.44); Carbon Dioxide 23 mmol/L (23-31); Chloride 103 mmol/L (98-107); Estimated GFR 102; Glucose 113 mg/dL (80-115); Potassium 3.8 mmol/L (3.5-5.1); Sodium 135 mmol/L (136-145)
[2024-02-16 20:05] VITALS: BP 115/80; TEMP 97.4
== END 2024-02-16 20:34 | disposition short-term general hospital (02) | DRG 100 ==
LOC: ERS 11:42 → T4-B 20:13
PROVIDERS: ADMIT Internal Medicine; ATTEND Internal Medicine
PROC: 4A00X4Z Measurement of Central Nervous Electrical Activity, External Approach (ICD-10-PCS; principal; 2024-02-08)
DX: R56.9 Unspecified convulsions (principal); L89.153 Pressure ulcer of sacral region, stage 3; R65.10 Systemic inflammatory response syndrome (SIRS) of non-infectious origin without acute organ dysfunction; I69.353 Hemiplegia and hemiparesis following cerebral infarction affecting right non-dominant side; E87.20 Acidosis, unspecified; A87.9 Viral meningitis, unspecified; I10 Essential (primary) hypertension; D64.9 Anemia, unspecified; M47.812 Spondylosis without myelopathy or radiculopathy, cervical region; M48.02 Spinal stenosis, cervical region; R53.81 Other malaise; I25.10 Atherosclerotic heart disease of native coronary artery without angina pectoris; I69.920 Aphasia following unspecified cerebrovascular disease; Z87.891 Personal history of nicotine dependence; Z98.890 Other specified postprocedural states
CPT/HCPCS: 36415; 36416; 70450; 70553; 71045; 80048; 80053; 80177; 80202; 80339; 81001; 82533; 83605; 83690; 83735; 83880; 84146; 84484; 85025; 87040; 87081; 87086; 93005; 94150; 95816; 95819; 96365; 96375; 97139; G0480; J0692; J1650; J3370; J3490; J7050

== ENCOUNTER 2024-07-19 13:26 | Outpatient (CLI) | payer MEDICARE | END 2024-07-19 13:27 | disposition home or self-care (01) | LOC: CT 13:26 | PROVIDERS: ATTEND Psychiatry & Neurology Neurology | DX: I63.9 Cerebral infarction, unspecified (principal); I67.89 Other cerebrovascular disease | CPT/HCPCS: 70450 ==